=== PATIENT | male | born 1955 | race Caucasian/White ===

== ENCOUNTER → 2023-10-02 06:11 | Day surgery (SDC) | payer OTHER, SELFPAY ==
[2023-10-02 09:45] LABS: Glucose - Point of Care 164 mg/dl (70-99)
== END ==
LOC: GI 06:11
PROVIDERS: ATTENDING PHYSICIAN Specialist; FAMILY PHYSICIAN Family Medicine
DX: Z12.11 Encounter for screening for malignant neoplasm of colon (principal); K63.89 Other specified diseases of intestine; K57.30 Diverticulosis of large intestine without perforation or abscess without bleeding; K22.70 Barrett's esophagus without dysplasia; K21.00 Gastro-esophageal reflux disease with esophagitis, without bleeding; K31.7 Polyp of stomach and duodenum; R12 Heartburn
CPT/HCPCS: 45380; 43239; 88305; 82962

== ENCOUNTER 2025-03-11 06:19 | Day surgery (SDC) | payer OTHER, SELFPAY ==
[2025-03-11 13:53] LABS: Glucose - Point of Care 98 mg/dl (70-99)
== END 2025-03-11 15:26 | disposition home or self-care (01) ==
LOC: GI 06:19
PROVIDERS: ATTENDING PHYSICIAN Specialist
DX: K22.70 Barrett's esophagus without dysplasia (principal)
CPT/HCPCS: 43239; 82962; 88305

== ENCOUNTER 2025-05-04 00:54 | Emergency (ER) | payer OTHER, SELFPAY ==
[2025-05-04 01:19] VITALS: BP 134/66
[2025-05-04 04:43] VITALS: BMI 27.1
--- NOTE | 2025-05-04 07:25 | ED.GENMED ---
History of Present Illness
General
Chief Complaint: Cough
Source: patient
Exam Limitations: none
Time Seen by Provider: 05/04/25 07:17
History of Present Illness
History of Present Illness:
70-year-old male with history of COPD, type 2 diabetes hypertension presents with onset of trouble breathing and cough last evening. He states he felt really tight. He got a hold of the family members nebulizer which helped a little bit. He
denies hemoptysis. No fever. No known sick contacts. No chest pain or leg swelling. No other complaints at this time
Past History
Past History
ED Past Medical History: HTN, NIDDM and Other (strabismus )
ED Past Surgical History: Orthopedic
Social History
Personal: Single
Employment: Employed
Phy Exam
Physical Exam
Physical Exam:
General: Well-appearing male no acute respiratory distress
HEENT normal cephalic atraumatic
Heart: Regular rate and rhythm
diffuse inspiratory and expiratory wheeze
Extremities: No edema to the lower extremities
Skin is warm no rash
Course
Orders/Labs/Results
Orders:
Orders
05/04/25 07:25
Dexamethasone Sod Phosphate [Decadron] 10 mg IV NOW STA
Ipratropium/Albuterol Sulfate [Duoneb] 3 ml INH R NOW STA
CR Chest - 2 Views Urgent
Comment:
Reason For Exam: cough
05/04/25 07:38
COVID-19 Antigen Urgent
Source: Nasal Swab
Complete Blood Count/With Diff Urgent
Comprehensive Metabolic Panel Urgent
Influenza A+B Rapid Molecular Urgent
ALEX Source: Nasal Swab
Specimen Description:
Abnormal Lab Results
05/04/25
07:38
WBC 11.1 H 10^3/uL
(4.8-10.8)
RBC 3.96 L 10^6/uL
(4.70-6.10)
Hgb 9.7 L g/dL
(13.0-18.0)
Hct 31.9 L %
(39.0-52.0)
MCH 24.5 L pg
(27.0-31.0)
MCHC 30.4 L g/dL
(33.0-37.0)
RDW 14.6 H %
(11.5-14.5)
Absolute Monos (auto) 1.3 H 10^3/uL
(0.1-0.6)
Absolute Eos (auto) 1.8 H 10^3/uL
(0-0.7)
Lymphocytes % 20.3 L %
(20.5-51.1)
Monocytes % 11.3 H %
(1.7-9.3)
Eosinophils % 16.2 H %
(0-6)
Chloride 111 H mmol/L
(98-107)
BUN 32 H mg/dl
(9-20)
Glucose 109 H mg/dl
(70-99)
05/04/25 07:38
05/04/25 07:38
Vital Signs
Initial and Last Documented VS:
Initial Vital Signs
Temp Pulse Resp BP Pulse Ox
98.4 F 68 16 134/66 98
05/04/25 01:19 05/04/25 01:19 05/04/25 01:19 05/04/25 01:19 05/04/25 01:19
Last Documented Vital Signs
Temp Pulse Resp BP Pulse Ox
98.4 F 63 20 134/66 98
05/04/25 01:19 05/04/25 04:46 05/04/25 04:46 05/04/25 01:19 05/04/25 07:27
MDM/Problems Addressed
Differential Diagnosis Includes:
Patient with trouble breathing and cough. Quite wheezing on exam. Consider COPD flare versus bronchitis versus underlying pneumonia. Will check COVID and flu test. Nebulizer chest x-ray and labs pending. Decadron ordered
*Pulse Oximetry
SaO2: 98
Oxygen Mode of Delivery: Room air
Patient hypoxic: no
*Critical Care Note
Total Time (30-74mins, 75-104mins- exclusive of procedures): Not Applicable
Update Note
Update Note:
X-ray clear COVID and flu negative labs reviewed without significant finding. Patient feeling much better after nebulizer here. Not hypoxic no respiratory distress. Mild COPD flare. No indication for admission. He has inhalers at home will add
a prednisone course. Stable for discharge
ED Attending Note
-
Portions of this chart may have been created with voice recognition software.� Occasional wrong word or��sound alike� substitutions may have occurred due to the inherent limitations of voice recognition software.
Discharge Plan
Departure
Patient Disposition: Home (Routine Discharge)
Date of Disposition: 05/04/25
Time of Disposition: 08:53
Patient with high blood pressure during this ER visit?: No
Discharge Problem:
COPD exacerbation
Instructions: COPD exacerbation
Prescriptions:
New
prednisone 20 mg tablet
40 mg PO DAILY 5 Days Qty: 10 0RF
No Action
omeprazole [Prilosec] 40 MG capsule,delayed release(DR/EC)
20 mg PO DAILY
repaglinide 2 MG tablet
2 mg PO .WITH MEAL
atorvastatin 10 MG tablet
10 mg PO QPM
polyvinyl alcohol [Lubricant Eye (polyv alcohol)] 15 ML drops
1 apply BOTH EYES DAILY
amlodipine 5 MG tablet
5 mg PO DAILY
aspirin [Aspir-Low] 81 MG tablet,delayed release (DR/EC)
81 mg PO DAILY
(DME) nebulizers [TruNeb Nebulizer] 1 EACH misc
1 ea inhalation PRN MDD x4
sitagliptin phosphate [Januvia] 100 MG tablet
100 mg PO DAILY
vitamins A,C,T-lkod-etgspg [PreserVision AREDS] 1 CAP capsule
2 cap PO DAILY
insulin glargine [Lantus Solostar U-100 Insulin] 300 UNITS/3 ML insulin pen
30 units SC .LUNCH
fluticasone furoate-vilanterol [Breo Ellipta] 1 EACH blister with device
1 ea IH DAILY
tiotropium bromide [Spiriva Respimat] 4 GM mist
2 inh IH DAILY
metoprolol succinate 25 MG tablet extended release 24 hr
25 mg PO DAILY Qty: 90 10RF
metformin 500 MG tablet
1,000 mg PO BID Qty: 0 0RF
Rx Instructions:
Hold post procedure, resume on 09/30 am
Referrals:
Carlos Montenegro MD [Family Provider, Family Practice]
Activity Restrictions/Additional Instructions:
Continue inhalers. Use prednisone as directed. Return if needed otherwise follow up with PMD
Interventions
Interventions:
*Risk Screen - Suicide Last Done: 05/04/25 01:19
*General Assessment Last Done: 05/04/25 01:19
*Neglect/Abuse Screening Last Done: 05/04/25 04:45
*ED- Fall Risk Assessment Last Done: 05/04/25 01:25
*ED COVID-19 Vaccine History Last Done: 05/04/25 04:45
ED- Pulmonary Assessment Last Done: 05/04/25 04:45
Discharge Date and Time
Print Language: [place]
[2025-05-04] MEDS: DECADRON 10 MG IV (07:39)
[2025-05-04] MEDS: DUONEB 3 ML INH (07:39)
[2025-05-04 07:41] VITALS: BP 137/61
[2025-05-04 07:49] LABS: Hematocrit 31.9 % (39.0-52.0); Hemoglobin 9.7 g/dL (13.0-18.0); Mean Corp Hgb Conc. 30.4 g/dL (33.0-37.0); Mean Corpuscular Volume 80.6 fL (80.0-94.0); Nucleated Red Blood Cells % 0 % (-); Platelet Count 185 10^3/uL (130-400); Red Cell Dist. Width 14.6 % (11.5-14.5)
[2025-05-04 08:00] VITALS: BP 139/57
[2025-05-04 08:19] LABS: ALT (SGPT) 17 U/L (0-50); AST (SGOT) 23 U/L (17-59); Albumin 3.7 g/dl (3.5-5.0); Alkaline Phosphatase 78 U/L (38-126); Blood Urea Nitrogen 32 mg/dl (9-20); Calcium 8.8 mg/dl (8.4-10.2); Carbon Dioxide 23 mmol/L (22-30); Chloride 111 mmol/L (98-107); Estimated Creatinine Clearance 51 ml/min; Glucose 109 mg/dl (70-99); Potassium 3.9 mmol/L (3.5-5.1); Sodium 138 mmol/L (135-145); Total Protein 7.1 g/dl (6.3-8.2); eGFR > 60.00
[2025-05-04 08:28] LABS: COVID-19 Antigen Negative (Negative)
== END 2025-05-04 09:00 | disposition home or self-care (01) ==
LOC: EMR 00:54
PROVIDERS: Physician Assistant; EMERGENCY PHYSICIAN Emergency Medicine; FAMILY PHYSICIAN Family Medicine
DX: J44.1 Chronic obstructive pulmonary disease with (acute) exacerbation (principal); E11.9 Type 2 diabetes mellitus without complications; I10 Essential (primary) hypertension; Z79.82 Long term (current) use of aspirin; Z79.84 Long term (current) use of oral hypoglycemic drugs
CPT/HCPCS: 99284; 96374; 94640; 71046; 80053; 85025; 87502; 87811

== ENCOUNTER 2025-06-25 13:20 | Inpatient (IN) | payer OTHER, SELFPAY ==
[2025-06-24 18:44] VITALS: BMI 27.1
[2025-06-24 18:53] LABS: Glucose - Point of Care 166 mg/dl (70-99)
[2025-06-24 19:00] VITALS: BP 130/68
[2025-06-24 19:00] LABS: Hematocrit 33.9 % (39.0-52.0); Hemoglobin 10.4 g/dL (13.0-18.0); Mean Corp Hgb Conc. 30.7 g/dL (33.0-37.0); Mean Corpuscular Volume 80.7 fL (80.0-94.0); Nucleated Red Blood Cells % 0 % (-); Platelet Count 217 10^3/uL (130-400); Red Cell Dist. Width 15.9 % (11.5-14.5)
--- NOTE | 2025-06-24 19:11 | ED.CVA ---
History of Present Illness
General
Chief Complaint: CVA/TIA Symptoms
Source: patient
Exam Limitations: none
Time Seen by Provider: 06/24/25 19:01
Nursing documentation reviewed up to this point in time: agreed with
Onset of Stroke Symptoms
Onset of symptoms known: Yes
Date of onset of symptoms: 06/24/25
Time of onset of symptoms: 11:00
Time pt last seen normal is known: No
History of Present Illness
History of Present Illness:
Note:
CHIEF COMPLAINT(S)
Dizziness and slurred speech.
HISTORY OF PRESENT ILLNESS
The patient is a 70-year-old male presenting with dizziness and slurred speech, which began earlier today. The patient noted the onset of dizziness and found it necessary to sit down due to the sensation. He confirmed episodes of slurred speech
occurring at the same time. On examination, the speech remains slurred. The patient was asked to follow finger movements and reported difficulty moving his eyes, a symptom that has been ongoing for a while, though it was previously assessed by an
od grinder operator who attributed it to progressive changes without concern for acute issues. The patient is alert and aware of his current location and year.
PAST MEDICAL AND SURGICAL HISTORY
The patient reports a history of Type 2 diabetes, hypertension, and hyperlipidemia. Surgical history includes rotator cuff repair with distal clavicle resection.
ALLERGIES
The patient reports no known allergies to medications.
REVIEW OF SYSTEMS
- Neurological: Reports episodes of dizziness and slurred speech, difficulty with eye movements.
- Cardiovascular: History of hypertension.
- Endocrine: Diagnosed with Type 2 diabetes.
- General: No history of smoking or current smoking.
PHYSICAL EXAM
General: Alert, no acute distress.
Skin: Warm, dry.
Head: Normocephalic, atraumatic.
Neck: Supple, trachea midline.
Eye, Ears, Nose, Mouth, and Throat: Oral mucosa moist.
Cardiovascular: Normal peripheral perfusion, no edema.
Respiratory: Respirations are non-labored.
Gastrointestinal: Abdomen nondistended.
Back: Normal range of motion, normal alignment.
Musculoskeletal: Normal range of motion, normal strength.
Neurological: Alert and oriented to person, place, time, and situation, reports difficulty moving eyes, slurred speech.
Psychiatric: Cooperative, appropriate mood and affect.
PLAN
The plan is to proceed with a CT scan of the head and neck with IV contrast to evaluate the possibility of a stroke. The patient will be admitted to the hospital for further monitoring and evaluation.
DIFFERENTIAL DIAGNOSIS
The Differential Diagnosis includes, in no particular order and is not limited to:
1. Cerebrovascular accident (stroke)
2. Transient ischemic attack (TIA)
3. Vestibular dysfunction
4. Labyrinthitis
5. Menieres disease
6. Multiple sclerosis
7. Brain tumor
8. Hypertensive encephalopathy
9. Migraine variant
10. Medication side effect
CARE-UPDATE
06/24/25 - 22:[address] angiography results with Dr. Renee. No significant acute findings; minimal plaque in distal left common carotid observed. Plan to initiate treatment includes aspirin and Plavix, which has been administered. Reglanide to be held. Monitor
for potential fibrinolytic effects.
EKG
My independent EKG interpretation is:
- Rhythm: Normal sinus rhythm
- Rate: 66 beats per minute
- Notable intervals: Red funnel branch block (assuming this is a sweat band separator error, possibly meant to be 'right bundle branch block' or another finding)
- Abnormalities: Left ventricular hypertrophy
- [place]: Left axis deviation
Disposition:
SUMMARY OF ENCOUNTER
The patient is a 70-year-old male who presented to the emergency department with symptoms of dizziness and slurred speech. The patients history includes underlying diabetes, hypertension, and hyperlipidemia. Due to the acute presentation and
neurological symptoms, a CT scan of the head and neck with IV contrast was performed to evaluate for a potential cerebrovascular accident. Management discussion with Dr. Renee, a neurologist, informed the initiation of dual antiplatelet therapy.
DISPOSITION
Admit.
ASSESSMENT
The patients acute presentation of dizziness and slurred speech raises concern for a cerebrovascular accident, transient ischemic attack, or other vascular or neurological events. Neurological consultation and further inpatient evaluation were
deemed necessary.
MANAGEMENT OF THE PATIENTS CARE WAS DISCUSSED WITH
Dr. Renee, neurologist, discussed the management plan which includes beginning dual antiplatelet therapy and admission for further evaluation.
PLAN
Proceed with inpatient admission for continuous monitoring and further diagnostic workup. Initiate dual antiplatelet therapy as discussed.
INDEPENDENT REVIEW OF LABS AND INTERPRETATION OF TESTS
My independent interpretation of the CT angiography shows no significant acute findings, with only minimal plaque observed in the distal left common carotid.
PATIENT EDUCATION AND COUNSELING
The patient was informed about the potential causes of his symptoms, including the need for hospitalization to rule out a significant neurological event such as a stroke and the importance of starting treatment with antiplatelet agents.
FOLLOW-UP INSTRUCTIONS
Inpatient hospital admission for further monitoring and management is required.
MEDICATION RECONCILIATION
Aspirin and clopidogrel (Plavix) initiated as dual antiplatelet therapy. Repaglinide was held.
MEDICAL DECISION MAKING
-Complexity of Data Reviewed: Chronic conditions affecting care include diabetes, hypertension, and hyperlipidemia. Differential diagnoses considered: cerebrovascular accident (stroke), transient ischemic attack (TIA), vestibular dysfunction, and
others as listed.
-Data:
Category 1
My independent interpretation of the CT scan of the head and neck showed no acute findings.
Category 3
Discussion of management with Dr. Renee, neurologist, who advised dual antiplatelet therapy and admission for further workup.
DIAGNOSIS
Cerebrovascular accident, suspected [ICD-10: I63.9]
Slurred speech, unspecified [ICD-10: R47.81]
Past History
Past History
ED Past Medical History: HTN, NIDDM and Other (strabismus )
ED Past Surgical History: Orthopedic
Social History
Personal: Single
Employment: Employed
Phy Exam
Physical Exam
Physical Exam:
.
Scores
NIH Stroke Score
Level of Consciousness: 0 - Alert
LOC Questions: 0-Answers both correctly
LOC Commands: 0-Performs both correctly
Best Horizontal Gaze: 0-Normal
Visual Schumacher: 0=Normal, no visual loss
Facial Palsy: 0=Normal, symmetrical
Motor - Right Arm: 0=No drift 10 seconds
Motor - Left Arm: 0=No drift 10 seconds
Motor - Right Le-No drift 5 seconds
Motor - Left Le-No drift 5 seconds
Limb Ataxia: 0-Absent
Sensation: 0-Normal
Best Language: 0-No aphasia
Dysarthria: 1-Mild slurring
Extinction and Inattention: 0-No abnormality
NIH Total Score:: 1
Course
Orders/Labs/Results
Orders:
Orders
06/24/25 18:47
EKG [Electrocardiogram (*1)] Urgent
Reason for Study: Tachycardia
06/24/25 18:48
EKG- Treatment ONCE
06/24/25 18:55
Complete Blood Count/With Diff Urgent
Comprehensive Metabolic Panel Urgent
06/24/25 19:10
CT Head & Neck Angio W/wo IV Urgent
Comment:
Reason For Exam: slurred speech, dizzy, EOM neuropathy
IV Insert/Care/Rem.- Treatment PRN
06/24/25 21:56
Aspirin 325 mg PO NOW STA
Clopidogrel Bisulfate [Plavix] 75 mg PO NOW STA
06/24/25 22:33
Admit/Transfer Patient As Directed
Co-Sign Provider:
Level of Care: Observation services
Assign to:: Telemetry
Physician / Group: Bebo
Diagnosis: Slurred Speech
Reason for Telemetry: CVA/TIA
Date to Stop Telemetry: 06/27/25
Time to Stop Telemetry: 11:00
PRN Pain Medication Management As Directed
May give lesser potent ordered pain med per pt: Yes
preference::
Protocol:: Medication orders for pain may be administered in a
manner that supports deferring to patient preference
when the pt is:
- Requesting an ordered lesser potent pain medication.
Least to most potent pain medications are defined
as: acetaminophen < NSAID < tramadol < opioids
(morphine, oxycodone, hydromorphone).
- Requesting a lesser dose of the same medication IF
ORDERED.
- Requesting a less intrusive route of administration
if both routes are prescribed by the provider (PO <
IV).
06/24/25 22:35
Code Status As Directed
Resuscitation Status: Full Code
06/25/25 00:01
Acetaminophen [Tylenol/Feverall] 650 mg RECTAL Q4HPRN PRN
Acetaminophen [Tylenol] 650 mg PO Q4HPRN PRN
Dextrose 50%-Water [Dextrose 50% Syringe] 12.5 grams IV [id number] PRN
Glucagon [GlucaGen] 1 mg IM PRN PRN
06/25/25 00:01
Case Management Consult ONCE
Case Management Consult: Discharge Planning
Comment: stroke/tia
Consult Notification Routine
Specialty to Notify: Neurology
DIETARY IP CONSULT Routine
Reason for Consult: stroke/TIA
NEUROLOGY CONSULT Urgent
Consulting Provider: Saeid Renee
Was physician already notified: No
Reason for consult: Slurred Speech
Compensation Vice President Urgent
MR Brain Without Contrast Routine
Comment:
Reason For Exam: stroke/TIA
Recent pill cam endoscopy?: No
Activity As Directed
Activity Level: Out of Bed-Early Mobility
Bedside Glucose Monitoring As Directed
Frequency: AC&HS
Additional Instructions:: Change to q6h if pt on TPN, tube feeding or not eating
NIH Stroke Scale As Directed
Directions: Per protocol
Comment: every shift and with any change in condition or mental status
Neurological Checks As Directed
Frequency: q4h
Additional Instructions:: q4h x 24h upon admission to the floor, then qshift & with any change in condition
and mental status
Patient Education As Directed
Type: Stroke education packet
Comment: provide to patient and family
Pneumatic Compression Sleeves As Directed
Type: Knee high
Vital Signs As Directed
Frequency: Per unit guidelines
Call for:: BP greater than 180/105 mmHg or less than 100/60 mmHg
Ot Eval And Treat Routine
Pt Eval And Treat Routine
Activity Level: Out of Bed-Early Mobility
Speech Therapy Eval & Treat Routine
DX Deep Vein Thrombosis Video Routine
06/25/25 06:00
Basic Metabolic Panel IN AM
Cardiovascular Evaluation IN AM
Complete Blood Count/No Diff IN AM
Glycohemoglobin (HgbA1c) IN AM
Magnesium IN AM
06/25/25 07:30
Insulin Aspart Corrective Low [Novolog Flexpen-Low Resistance] See Protocol SC AC
06/25/25 08:00
Aspirin Chewable [Low Strength Aspirin] 81 mg PO DAILY
Budesonide/Formoterol 160/4.5 [Symbicort 160/4.5 Mcg Inhaler] 2 puff INH R BID
Clopidogrel Bisulfate [Plavix] 75 mg PO DAILY
Dapagliflozin [Farxiga] 10 mg PO DAILY
Metoprolol Xl [Toprol Xl] 25 mg PO DAILY
Pantoprazole [Protonix] 40 mg PO BID
Sitagliptin Phosphate [Januvia] 100 mg PO DAILY
Tiotropium [place] 2.5 Mcg [Spiriva Respimat 2.5 Mcg] 2 puff INH R DAILY
06/25/25 Dinner
2000 calorie (17 carb) Diabetic
At Your Request: Full Participation
06/25/25 18:00
Atorvastatin [Lipitor] 40 mg PO QPM
06/25/25 22:00
Amlodipine [Norvasc] 10 mg PO HS
06/27/25 11:00
DC Protocol for Telemetry ONCE
Abnormal Lab Results
06/24/25 06/24/25
18:47 18:55
WBC 11.4 H 10^3/uL
(4.8-10.8)
RBC 4.20 L 10^6/uL
(4.70-6.10)
Hgb 10.4 L g/dL
(13.0-18.0)
Hct 33.9 L %
(39.0-52.0)
MCH 24.8 L pg
(27.0-31.0)
MCHC 30.7 L g/dL
(33.0-37.0)
RDW 15.9 H %
(11.5-14.5)
Absolute Monos (auto) 1.5 H 10^3/uL
(0.1-0.6)
Absolute Eos (auto) 1.6 H 10^3/uL
(0-0.7)
Lymphocytes % 20.1 L %
(20.5-51.1)
Monocytes % 13.1 H %
(1.7-9.3)
Eosinophils % 14.2 H %
(0-6)
BUN 28 H mg/dl
(9-20)
Glucose 169 H mg/dl
(70-99)
POC Glucose 166 H mg/dl
(70-99)
06/24/25 18:55
06/24/25 18:55
Vital Signs
Initial and Last Documented VS:
Initial Vital Signs
Temp Pulse Resp Pulse Ox
98.4 F 77 19 94
06/24/25 18:44 06/24/25 18:44 06/24/25 18:44 06/24/25 18:44
Last Documented Vital Signs
Temp Pulse Resp BP Pulse Ox
97.6 F 54 16 121/61 96
06/25/25 03:14 06/25/25 03:14 06/25/25 03:14 06/25/25 03:14 06/25/25 03:14
*Pulse Oximetry
SaO2: 97
Oxygen Mode of Delivery: Room air
Patient hypoxic: no
*Critical Care Note
Total Time (30-74mins, 75-104mins- exclusive of procedures): Not Applicable
ED Attending Note
-
Portions of this chart may have been created with voice recognition software.� Occasional wrong word or��sound alike� substitutions may have occurred due to the inherent limitations of voice recognition software.
Discharge Plan
Departure
Patient Disposition: Admit
Date of Disposition: 06/24/25
Time of Disposition: 22:02
Admit to: Telemetry
Presentation/result/management discussed w/ accepting MD/DO: Hospitalist
Patient with high blood pressure during this ER visit?: Yes
Condition: Fair
Discharge Problem:
Acute CVA (cerebrovascular accident)
Interventions
Interventions:
*Risk Screen - Suicide Last Done: 06/24/25 18:44
*General Assessment Last Done: 06/24/25 18:44
*Neglect/Abuse Screening Last Done: 06/24/25 18:44
*ED- Fall Risk Assessment Last Done: 06/24/25 18:44
*ED COVID-19 Vaccine History Last Done: 06/24/25 18:44
*ED Influenza Vaccine History Last Done: 06/24/25 18:44
*Nursing Disposition Last Done: 06/25/25 00:10
ED- Pulmonary Assessment Last Done: 06/24/25 19:05
ED- Neurological Assessment Last Done: 06/24/25 19:05
ED- Cardiac Assessment Last Done: 06/24/25 19:05
ED Swallowing Screen Last Done: 06/24/25 19:42
Discharge Date and Time
Discharge Date/Time: 06/25/25 00:10
[2025-06-24 19:25] LABS: ALT (SGPT) 17 U/L (0-50); AST (SGOT) 21 U/L (17-59); Albumin 4.3 g/dl (3.5-5.0); Alkaline Phosphatase 93 U/L (38-126); Blood Urea Nitrogen 28 mg/dl (9-20); Calcium 9.2 mg/dl (8.4-10.2); Carbon Dioxide 27 mmol/L (22-30); Chloride 105 mmol/L (98-107); Estimated Creatinine Clearance 47 ml/min; Glucose 169 mg/dl (70-99); Potassium 4.4 mmol/L (3.5-5.1); Sodium 139 mmol/L (135-145); Total Protein 7.8 g/dl (6.3-8.2); eGFR 58.73
[2025-06-24 20:00] VITALS: BP 156/66
[2025-06-24 20:36] VITALS: BP 154/67
[2025-06-24 21:00] VITALS: BP 147/70
--- NOTE | 2025-06-24 22:06 | HPS.HSE ---
Addendum entered and electronically signed by Deborah Lagunas MD 06/24/25 23:09:
This is an addendum to the H&P written by Otilia Parker on 06/24/2025. �Patient seen and examined dependently with PA.
70-year-old male past medical history of COPD, type 2 diabetes, hypertension, strabismus left eye, chronic anemia, presenting with slurred speech since 11 AM and dizziness/vertigo earlier.
Vital signs unremarkable.
Labs show leukocytosis of 11.4.
CTA head and neck shows no acute intracranial abnormality.
Patient with concern for CVA. �Aspirin and Plavix and statin, check A1c and lipid panel, MRI brain, neurology. �Speech and swallow evaluation
Original Note:
Family Physician
-
Family Physician: Carlos Montenegro
Chief Complaint
-
Unsteady Gait and Slurred Speech
History of Present Illness
Patient is a 70 y/o male past medical history of diabetes mellitus, hypertension, hyperlipidemia and asthma who presents with slurred speech. Patient was noted by his neighbor to have slurred speech that started around 11am this morning. Patient
reports blurry vision which he attributes to his new glasses and states he has chronic strabismus. He denies focal numbness, tingling or weakness.
Medical History
Past Medical History
Past Medical History: Reports Other
Additional Past Medical History:
Diabetes Mellitus, Type II
Essential Hypertension
Hyperlipidemia
Asthma
GERD
Past Surgical History: Reports Other
Additional Past Surgical History:
Left Rotator Cuff Surgery
Left Hip Fracture Repair
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
Carpal Tunnel Release
Cataract Surgery
Social History
Tobacco: Non-smoker
Family History
Family History: Not pertinent
Allergies / Home Medications
Allergies reflects when Allergies were last updated in [facility].
Home Medications with original date entered in [facility]
Allergy/Medication List:
Allergies
Allergy/AdvReac Type Severity Reaction Status Date / Time
No Known Allergies Allergy Verified 06/24/25 18:50
Home Medications
metformin 500 mg tablet 1,000 mg (2 x 500 mg) PO BID Diabetes ##0 09/28/21
metoprolol succinate 25 mg tablet,extended release 24 hr 25 mg PO DAILY #90 tabs 09/28/21
sitagliptin phosphate 100 mg tablet (Januvia) 100 mg PO DAILY Diabetes 09/28/21
amlodipine 10 mg tablet 10 mg PO HS 06/24/25
empagliflozin 10 mg tablet (Jardiance) 10 mg PO DAILY 06/24/25
fluticasone furoate 100 mcg-vilanterol 25 mcg/dose inhalation powder (Breo Ellipta) 1 inh inhalation DAILY 06/24/25
omeprazole 20 mg capsule,delayed release 20 mg PO BID 06/24/25
tiotropium bromide 1.25 mcg/actuation mist for inhalation (Spiriva Respimat) 2 puff inhalation DAILY 06/24/25
Review of Systems
-
A 12 point ROS was completed and negative except as noted: Yes
Constitutional: Denies Fever
Respiratory: Denies Cough or Trouble Breathing
Cardiac: Denies Chest Pain or Palpitations
Abdomen/GI: Denies Abdominal Pain, Nausea, Vomiting or Diarrhea
Physical Exam
Vital Signs
Vital Signs
Temp Pulse Resp BP Pulse Ox
98.4 F 60 13 147/70 96
06/24/25 18:44 06/24/25 21:45 06/24/25 21:45 06/24/25 21:00 06/24/25 21:45
Physical Exam
General: Comfortable and Conversant
HEENT: Anicteric, Moist mucous membranes, PERRLA and Other (Chronic strabismus )
Respiratory: Clear and Non Labored Respirations
Cardiac: S1/S2 and Regular Rhythm; No Murmur
GI: Soft and Non Tender
Rectal: Deferred by Provider
Musculoskeletal: No Clubbing, No Cyanosis and No Edema
Skin: Warm and Dry
Neuro: Awake, Alert, Oriented, No Motor Deficits and Slurred Speech
Psych: Calm
Laboratory Results
-
06/24/25 18:55
06/24/25 18:55
Laboratory Results
Total Bilirubin 0.4 mg/dl (0.2-1.3) 06/24/25 18:55
AST 21 U/L (17-59) 06/24/25 18:55
ALT 17 U/L (0-50) 06/24/25 18:55
Alkaline Phosphatase 93 U/L (38-126) 06/24/25 18:55
Data Reviewed
-
CT Scan: Report Reviewed by me
Lab Data: Labs Reviewed by me
Impression/Plan
-
Slurred Speech, concerning for acute stroke
-Consult Neurology
-Continue aspirin and clopidogrel
-Check Brain MRI
-Consult PT/OT and Speech
Diabetes Mellitus, Type II
-Check HgbA1c
-Hold metformin post contrast for CTA
-Continue Januvia and Jardiance
-Monitor sugars and continue coverage insulin
Essential Hypertension
-Allow for permissive hypertension until ~11am on 06/25
-Continue amlodipine
Hyperlipidemia
-Check Lipid Panel
-Start atorvastatin
Asthma, no acute exacerbation
-Continue Breo and Spiriva
GERD
-Continue Protonix
DVT proph: SCDs
Code Status: Full Code
[2025-06-24 22:07] VITALS: BP 141/69
[2025-06-24] MEDS: ASPIRIN 325 MG PO (22:12)
[2025-06-24] MEDS: PLAVIX 75 MG PO (22:12)
[2025-06-24 23:00] VITALS: BP 144/67
[2025-06-25] VITALS (10 sets, daily range): BP systolic 114–166; BP diastolic 51–71; PULSE 56–69; O2SAT 98; BMI 25.8
[2025-06-25 00:30] LABS: Glucose - Point of Care 131 mg/dl (70-99)
--- NOTE | 2025-06-25 00:40 | PTCARENOTE ---
Received patient from ED via stretcher. Patient stood and pivoted from stretcher x2 assist. AAOx3, no current complaints of pain. Oriented patient to room and placed call chong within reach.
--- NOTE | 2025-06-25 03:01 | DOWNTIME ---
There was a [employer] Client Prop Making Supervisor Downtime on 06/25/2025 from 0100 to 06/25/2025 at 0255. Downtime documentation of patient's care, including medication administrations, has been reconciled in the electronic record per guidelines. Refer to the
patient's paper chart under the miscellaneous tab to see printed paper medication records and downtime forms.
[2025-06-25 06:52] LABS: Hematocrit 35.1 % (39.0-52.0); Hemoglobin 10.3 g/dL (13.0-18.0); Mean Corp Hgb Conc. 29.3 g/dL (33.0-37.0); Mean Corpuscular Volume 84.6 fL (80.0-94.0); Platelet Count 205 10^3/uL (130-400); Red Cell Dist. Width 15.9 % (11.5-14.5)
--- NOTE | 2025-06-25 07:03 | W.PN.HOSP.TC ---
Addendum entered and electronically signed by Kesha Rinaldi MD 06/25/25 16:06:
I saw and evaluated the patient independently. I reviewed and discussed the resident�s note and agree with findings and plan as documented by Dr. Palacios.
GENERAL: well developed, well nourished, male in no apparent distress
HEENT: NC/AT--left eye deviated towards midline (nose)
HEART: regular rate and rhythm, +S1, +S2
LUNGS : clear to auscultation bilaterally
ABDOM: soft, nontender, nondistended, + bowel sounds
EXT: no cyanosis, clubbing, or edema
NEUROLOGIC: grossly intact
Dizziness secondary to transient ischemic attack--but cannot rule out CVA--CTA head and neck negative--MRI confirms acute CVA right parietal and left occipital lobes--apprec neuro--permissive HTN for 24 hours--lipid panel shows LDL not at goal
(88)--start high intensity statin lipitor 80--check ECHO to eval for embolic source, may need JOSÉ MIGUEL--cont asa/plavix for 21 days then asa alone thereafter--PT/OT/speech
iron deficiency anemia--ferritin 6.7, B12 low--start repletion 1000mg daily--folate WNL--cont thiamine
Diabetes mellitus type 2--cont Dapagliflozin 10 mg, sitagliptin 100 mg--insulin aspart sliding scale
GERD--continue Protonix
Essential Hypertension--Continue metoprolol 25 mg with parameters
Asthma-- Continue ipratropium/albuterol inhaler, tiotropium bromide.
DVT proph
Code-- Full
Original Note:
Today's Communication/Plan
-
MRI
Echo follow-up
Monitor B12, folic acid, CBC, CMP.
Monitor blood glucose, sliding scale.
Assessment / Plan
Assessment / Plan
70-year-old male with past history of type 2 diabetes, hypertension, hyperlipidemia, asthma, GERD presented with dizziness and slurred speech which became yesterday morning when he was at his friend's house. The patient noted the onset of dizziness
and found it necessary to sit down on the couch. He confirmed episodes of slurred speech, blurry vision (he is mentioning it is because of his new glasses )occurring at the same time.
# Dizziness secondary to transient ischemic attack:
BP 166/66--137/64 (permissive hypertension currently on hold for antihypertensives)
I/o=
Labs, WBC 11.4--9.7, Hemoglobin 10.4--10.3.
Chemistry: Sodium 138, potassium 4.2, chloride 106, carbon dioxide 28, bun 28--23 high, creatinine 1.3--1.4, HbA1c pending, blood glucose 169--101 high, hep C antibody pending,
Head and neck CT angiogram: There is moderate disc space narrowing at C4-C5. There is mild narrowing at C3/C4. There is minimal reversal of normal cervical spinal lordosis. This can be seen with muscle spasm. Prevertebral soft tissues appear
normal.Overall mild atherosclerotic vascular disease.
EKG: Normal sinus rhythm, right bundle branch block, inferior infarct, T wave inversion.(Which was noted on the previous EKG on 2019).
Echo order placed to assess the primary source for TIA
Continue aspirin chewable 81 mg and clopidogrel, atorvastatin 40 mg,
MRI head for suspecting- sensitive for ischemia/mass.
Currently on permissive hypertension.
Lipid profile results showed LDL 88, goal LDL has to be less than 70, atorvastatin dosage increased to 80 mg
Neurology consulted recommended for IV iron by mouth iron replaced, to follow orthostatics, advised to initiate B12 if B12 level is less than 400.
Recommended to continue aspirin and clopidogrel for 21 days, then discontinue of clopidogrel.
Recommended to check blood work for additional metabolic abnormalities.
# Diabetes mellitus:
Dapagliflozin 10 mg, sitagliptin 100 mg,
insulin aspart sliding scale
# GERD continue Protonix
# Hypertension: Continue metoprolol 25 mg
# Asthma: Continue ipratropium/albuterol inhaler, tiotropium bromide.
#Consulted PT,OT, ST
DVT: SVT
Code: Full
Anticipated Discharge: > 48 hours
Subjective/Interval History
-
Date of Service: June 25, 2025
70-year-old male with past history of type 2 diabetes, hypertension, hyperlipidemia, asthma, GERD presented with dizziness and slurred speech which became yesterday morning when he was at his friend's house. The patient noted the onset of dizziness
and found it necessary to sit down on the couch. He confirmed episodes of slurred speech, blurry vision (he is mentioning it is because of his new glasses )occurring at the same time. He denies weakness, tingling, numbness, similar episodes in the
past, falling down,confusion, trouble on coordination, severe headache, nausea, vomiting, vertigo. He is taking his medications regularly which includes metformin 500 mg, sitagliptin 100 mg, empagliflozin 10 mg. His hypertension medication
includes metoprolol, amlodipine. Non-smoker, surgical history: left rotator cuff surgery, left hip fracture surgery.
Currently he is not experiencing weakness, tingling, numbness, confusion, trouble uncoordination, severe headache, nausea, vomiting, vertigo, bladder incontinence. Maybe he is not getting down from the bed from the time of admission.
Objective Data
-
Labs:
Laboratory Results
06/24/25 06/25/25
18:55 05:53
WBC 9.7
Hgb 10.3 L
Hct 35.1 L
Plt Count 205
Sodium 139 Pending
Potassium 4.4 Pending
Chloride 105 Pending
Carbon Dioxide 27 Pending
BUN 28 H Pending
Creatinine 1.3 Pending
Glucose 169 H Pending
Calcium 9.2 Pending
Total Bilirubin 0.4
AST 21
ALT 17
Alkaline Phosphatase 93
Vital Signs:
Vital Signs
Temp Pulse Resp BP Pulse Ox
97.6 F 54 16 121/61 96
06/25/25 03:14 06/25/25 03:14 06/25/25 03:14 06/25/25 03:14 06/25/25 03:14
I&O
06/24/25 06/25/25 06/26/25
06:59 06:59 06:59
Intake Total 0 / 0
Output Total 1025 / 1025
Balance -1025 / -1025
Physical Exam
-
General: No Apparent Distress
Respiratory: Clear to Auscultation
Cardiac: Regular Rhythm and S1/S2
GI: Soft, Nontender and Nondistended
Genito-urinary: No Costovertebral Tender
Skin: Warm
Neuro: AO x 3, Central Nerve's Intact, No Sensory Deficits, DTR's Intact & Symmetrica, Slurred Speech and Other ( normal reflex, strength 5 x 5, he is following fingers while changing the direction, pupils reactive. Cranial nr: No diplopia, no
dysarthria, slurred speech present, no facial nerve palsy signs. )
Hematologic / Lymphatic: No Lymphadenopathy
Psych: Calm
[2025-06-25 07:14] LABS: Blood Urea Nitrogen 23 mg/dl (9-20); Calcium 8.9 mg/dl (8.4-10.2); Carbon Dioxide 28 mmol/L (22-30); Chloride 106 mmol/L (98-107); Estimated Creatinine Clearance 44 ml/min; Glucose 101 mg/dl (70-99); HDL Cholesterol 45 mg/dl; LDL Cholesterol, Calculated 88 mg/dl; Magnesium 1.9 mg/dl (1.6-2.3); Potassium 4.2 mmol/L (3.5-5.1); Sodium 138 mmol/L (135-145); Very Low Density Lipoprotein 9 mg/dl (0-30); eGFR 53.74
[2025-06-25] MEDS: SYMBICORT 160/4.5 MCG INHALER 2 PUFF INH ×2 (07:36→19:33)
[2025-06-25] MEDS: SPIRIVA RESPIMAT 2.5 MCG 2 PUFF INH (07:36)
[2025-06-25 07:57] LABS: Glucose - Point of Care 103 mg/dl (70-99)
[2025-06-25] MEDS: JANUVIA 100 MG PO (07:58)
[2025-06-25] MEDS: PROTONIX 40 MG PO ×2 (07:58→20:16)
[2025-06-25] MEDS: FARXIGA 10 MG PO (07:59)
[2025-06-25] MEDS: PLAVIX 75 MG PO (08:03)
[2025-06-25] MEDS: LOW STRENGTH ASPIRIN 81 MG PO (08:04)
--- NOTE | 2025-06-25 08:19 | CON.NEURO4 ---
Addendum entered and electronically signed by Saeid Renee MD 06/25/25 12:42:
Studies reviewed.
I have personally examined the patient. I reviewed and agree with the CLOTH CHECKER's Note.
My addenda:
Awake, alert, interactive. No acute distress.
Speech mildly hypophonic.
Follows 2-step requests w/ mild difficulty. No tremor.
Extra-ocular movements grossly intact. Patient has 3+ esotropia
Facial movements full and symmetric. Hearing intact to normal conversational volume.
Normal UE movements bilaterally.
Neck: full ROM.
Chest: no dyspnea
Heart: no JVD
Ext: (-) Clubbing, (-) Cyanosis, (-) Edema
IMPRESSIONS/RECOMMENDATIONS:
Abrupt onset of change mental status, speech changes
Check MRI brain as planned
With IV iron and by mouth iron replaced low iron storage levels
Check blood work for additional metabolic abnormalities
Follow orthostatics
Initiate B12 if B12 level is less than 400
Continue newly initiated atorvastatin 40 mg daily goal of normoglycemia
Continue dual antiplatelet therapy with both aspirin and clopidogrel for 21 days, then discontinuance of clopidogrel with continuance of aspirin 81 mg daily
D/W patient
All questions answered.
Will continue to follow patient.
Original Note:
Documented by User: Oruqidea Carlos NP 06/25/25 12:21
Consultation - Neurology 4
-
CONSULTING PHYSICIAN: Saeid Renee MD
REFERRING PHYSICIAN: Hospitalists/Otilia Rasheed PA-C
DICTATED BY: ADI Hendrickson
DATE/TIME OF REQUEST: 06/25/25
DATE/TIME OF CONSULTATION: 06/25/25
Reason for Consultation: Dysarthria, dizziness
History of Present Illness:
This is a 70-year-old right-handed male who has presented to the hospital on 06/24/25 with report of dizziness and dysarthria. Patient reports that yesterday (06/24/25) he was at a neighbor's house at 1100 when suddenly he started to feel 'dizzy'
which he describes as lightheaded. He had to sit down and reports that his friends said he wasn't speaking much and what he did say sounded slurred. CTA head/neck was obtained on arrival and is negative for any acute abnormalities. NIHSS was 1 for
dysarthria. He was not a candidate for TNK/IAT due to low NIHSS. Currently (06/25/25), he reports that his symptoms are ongoing. He reports feeling 'out of it,' lightheaded, tired, and not like himself. He denies any headache, vision changes,
swallowing difficulty, numbness, and weakness. He denies any history of TIA, stroke, or events like this in the past. He is not taking any blood-thinning medications.
Past Medical History: HTN, HLD, NIDDM, asthma, GERD, chronic strabismus left eye
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
Family History: Reviewed and noncontributory.
Social History: Denies tobacco, alcohol, and illicit drug use.
Allergies: No known allergies.
Home Medications: See below.
Review of Symptoms:
Patient denies any fever, headache, chest pain, shortness of breath, GI or symptoms.
�Per the HPI.�All systems are reviewed negative except above.
Physical Exam:
The patient is afebrile, abdomen is nondistended, breathing is unlabored, skin is warm and dry, no edema.
NIH Stroke Scale:
I performed the NIH stroke scale on the patient on 06/25/25 at 0945. The patient scored 3 points on the NIH stroke scale assessment, which were assigned as follows: See below.
Neurologic Examination:
The patient is awake, alert and oriented x 3. He is able to follow commands and answer questions appropriately. There is mild aphasia, severe difficulty with repetitive phrases. Speech is hypophonic, mildly dysarthric. On cranial nerve assessment,
pupils are 3 mm bilateral, round and reactive to light and accommodation. Visual schumacher are full. +Strabismus. Extraocular movements are intact. Facial sensations are intact and bilaterally symmetrical, there is no facial asymmetry. Hearing is
intact bilaterally to normal conversation volume. Tongue palate and uvula are midline. Sternocleidomastoid strengths are full bilaterally. Motor strengths are 5/5 bilateral upper and lower extremities on medical research [place] scale. There is
slight pronator drift in the RUE. No involuntary movement noted. Deep tendon reflexes are 2+ bilateral upper and lower extremities and Babinski is absent bilaterally. There was no extinction noted on double simultaneous stimulation. Coordination is
intact by finger to nose bilaterally.
Lab Results: See below.
Neuro Imaging:
1. CTA head/neck 06/24/25: No acute intracranial pathology. Moderate nonacute sinusitis. Probable large right nasal cavity polyps. No acute vascular pathology. No M1 nor M2 occlusion. Overall mild atherosclerotic vascular disease. Multilevel
degenerative disc disease. Minimal reversal of normal cervical spinal lordosis. This can be seen with muscular spasm.
Differentials for the patient's presentation include:
1. Dizziness and speech changes; etiology is concerning for a small ischemic stroke, vs less likely toxic metabolic encephalopathy or orthostasis.
2. Low ferritin level.
3. Vitamin B12 deficiency.
Patient has the following risk factors for their symptoms: HTN, HLD, DM
IV Tenecteplase/IAT candidacy: He was not a candidate for TNK/IAT due to low NIHSS.
Recommendations:
-MRI Brain w/ and w/o contrast pending.
-Continue DAPT with aspirin 81mg and clopidogrel 75mg daily for 21 days. After 21 days, stop clopidogrel and continue aspirin 81mg daily only, indefinitely.
-Ferritin level is severely low at 6.7. Provide IV iron x1 now. Initiate ferrous sulfate 325mg night.
-LDL goal <70. LDL is 88. Continue newly initiated atorvastatin 40mg daily.
-Goal normoglycemia, hbA1c is 7.6.
-PT/OT/ST evaluations.
-NIHSS and neurological checks per unit guidelines.
-Provide patient with a stroke education packet.
-Vitamin B12 level is low at 247, goal is >400. Initiate cyanocobalamin 1000mcg PO daily.
-DVT prophylaxis.
Discussed patient care with: Dr. Renee, the patient
Vital Signs and Labs
-
Vital Signs and Labs:
Vital Signs
Temp Pulse Resp BP Pulse Ox
97.4 F 63 18 137/64 95
06/25/25 08:05 06/25/25 08:05 06/25/25 08:05 06/25/25 08:05 06/25/25 08:05
Lab Results
06/25/25 05:53
06/25/25 05:53
Sodium 138 mmol/L (135-145) 06/25/25 05:53
Potassium 4.2 mmol/L (3.5-5.1) 06/25/25 05:53
BUN 23 mg/dl (9-20) H 06/25/25 05:53
Glucose 101 mg/dl (70-99) H 06/25/25 05:53
Calcium 8.9 mg/dl (8.4-10.2) 06/25/25 05:53
LDL Cholesterol, Calc 88 mg/dl 06/25/25 05:53
Medications
-
Active Medications
Generic Name Dose Route Start Last Admin
Trade Name Freq PRN Reason Stop Dose Admin
Acetaminophen 650 mg 06/25/25 00:01
Acetaminophen 650 Mg Rectal Suppository RECTAL 07/23/25 00:00
Q4HPRN PRN
SOUTH, mild pain, or temp >100.4F
Acetaminophen 650 mg 06/25/25 00:01
Acetaminophen 325 Mg Tablet PO 07/23/25 00:00
Q4HPRN PRN
SOUTH, mild pain, or temp >100.4F
Albuterol/Ipratropium 3 ml 06/25/25 00:01
Ipratropium 0.5/Albuterol 3 Mg (3 Ml Ampul) INH
R Q6HPRN PRN
shortness of breath
Protocol
Amlodipine Besylate 10 mg 06/25/25 22:00
Amlodipine 10 Mg Tablet PO 07/23/25 21:59
HS HERLINDA
Aspirin 81 mg 06/25/25 08:00 06/25/25 08:04
Aspirin 81 Mg Chewable Tablet PO 07/23/25 07:59 81 mg
DAILY HERLINDA Administration
Atorvastatin Calcium 40 mg 06/25/25 18:00
Atorvastatin (Lipitor) 40 Mg Tablet PO 07/23/25 17:59
QPM HERLINDA
Budesonide/Formoterol Fumarate 2 puff 06/25/25 08:00 06/25/25 07:36
Symbicort Inhaler 160/4.5 INH 07/23/25 07:59 2 puff
R BID HERLINDA Administration
Clopidogrel Bisulfate 75 mg 06/25/25 08:00 06/25/25 08:03
Clopidogrel 75 Mg Tablet PO 07/23/25 07:59 75 mg
DAILY HERLINDA Administration
Dapagliflozin 10 mg 06/25/25 08:00 06/25/25 07:59
Dapagliflozin (Farxiga) 10 Mg Tablet PO 07/23/25 07:59 10 mg
DAILY HERLINDA Administration
Dextrose 12.5 grams 06/25/25 00:01
Dextrose 50% (0.5 Grams/Ml) 50 Ml Syringe IV 07/23/25 00:00
[id number] PRN
hypoglycemia
Protocol
Glucagon 1 mg 06/25/25 00:01
Glucagon 1 Mg Vial IM 07/23/25 00:00
PRN PRN
hypoglycemia
Protocol
Insulin Aspart 0 units 06/25/25 07:30 06/25/25 07:58
Insulin Aspart Low Resistance 300 Units/3 Ml Pen.Injctr SC 07/23/25 07:29 Not Given
AC HERLINDA
Protocol
Metoprolol Succinate 25 mg 06/25/25 08:00
Metoprolol 25 Mg Extended Release Tablet PO 07/23/25 07:59
DAILY HERLINDA
Pantoprazole Sodium 40 mg 06/25/25 08:00 06/25/25 07:58
Pantoprazole 40 Mg Delayed Release Tablet PO 07/23/25 07:59 40 mg
BID HERLINDA Administration
Sitagliptin Phosphate 100 mg 06/25/25 08:00 06/25/25 07:58
Sitagliptin (Januvia) 100 Mg Tablet PO 07/23/25 07:59 100 mg
DAILY HERLINDA Administration
Tiotropium [place] 2 puff 06/25/25 08:00 06/25/25 07:36
Tiotropium (Spiriva Respimat) 2.5 Mcg Inhaler INH 07/23/25 07:59 2 puff
R DAILY HERLINDA Administration
Home Medications
�Medication �Instructions �Recorded
metformin 500 mg tablet 1,000 mg (2 x 500 mg) PO BID 09/28/21
Diabetes ##0
metoprolol succinate 25 mg 25 mg PO DAILY #90 tabs 09/28/21
tablet,extended release 24 hr
sitagliptin phosphate 100 mg 100 mg PO DAILY Diabetes 09/28/21
tablet (Januvia)
amlodipine 10 mg tablet 10 mg PO HS Blood Pressure 06/24/25
empagliflozin 10 mg tablet 10 mg PO DAILY Diabetes 06/24/25
(Jardiance)
fluticasone furoate 100 1 inh inhalation DAILY 06/24/25
mcg-vilanterol 25 mcg/dose Lung/Breathing Issues
inhalation powder (Breo Ellipta)
ipratropium 0.5 mg-albuterol 3 mg 3 ml inhalation Q6HPRN PRN 06/24/25
(2.5 mg base)/3 mL nebulization shortness of breath
soln
omeprazole 20 mg capsule,delayed 20 mg PO BID GERD 06/24/25
release
tiotropium bromide 1.25 2 puff inhalation DAILY 06/24/25
mcg/actuation mist for inhalation Lung/Breathing Issues
(Spiriva Respimat)
NIH Stroke Score
Subsequent NIH Scale
Date of Subsequent NIH Scale: 06/25/25
Time of Subsequent NIH Scale: 09:45
NIH Stroke Score
Level of Consciousness: 0 - Alert
LOC Questions: 0-Answers both correctly
LOC Commands: 0-Performs both correctly
Best Horizontal Gaze: 0-Normal
Visual Schumacher: 0=Normal, no visual loss
Facial Palsy: 0=Normal, symmetrical
Motor - Right Arm: 1=Drift < 10 seconds
Motor - Left Arm: 0=No drift 10 seconds
Motor - Right Le-No drift 5 seconds
Motor - Left Le-No drift 5 seconds
Limb Ataxia: 0-Absent
Sensation: 0-Normal
Best Language: 1-Mild aphasia
Dysarthria: 1-Mild slurring
Extinction and Inattention: 0-No abnormality
NIH Total Score:: 3
Modified Decker (mRS) Score
Modified Decker Scale (mRS): Slight disability. Able to look after own affairs.
Score: 2

Documented by User: Saeid Renee MD 06/25/25 12:30
NIH Stroke Score
NIH Stroke Score
NIH Total Score:: 3
Modified Decker (mRS) Score
Score: 2
[2025-06-25 08:46] LABS: Glycohemoglobin (HgbA1c) 7.6 % (4.0-5.9)
[2025-06-25 09:43] LABS: Ferritin 6.7 ng/ml (17.9-464.0)
[2025-06-25 10:14] LABS: Folate 13.5 ng/ml (2.76-20); Vitamin B12 247 pg/ml (239-931)
[2025-06-25] MEDS: TOPROL XL PO (11:46)
[2025-06-25 12:02] LABS: Glucose - Point of Care 116 mg/dl (70-99)
--- NOTE | 2025-06-25 12:04 | PTOTSP ---
PER DIEM PHYSICAL THERAPIST ASSISTANT Evaluations
Patient is at risk for dysphagia given admission with concern for possible stroke and comorbidities (i.e., COPD, asthma, GERD). Patient is appropriate to initiate diet as outlined below with compensations.
Patient currently presents with at least mild dysarthria and mild mixed aphasia with expressive greater than receptive language deficits (Quick Aphasia Battery Form 1 score 8.83).
Recommend:
1. Regular, Thin liquids
2. Medications as best tolerated
3. General aspiration and reflux precautions
4. PER DIEM PHYSICAL THERAPIST ASSISTANT f/u to determine if/when instrumental swallow testing warranted, to treat speech/language changes, and complete cognitive linguistic screen. Therapy warranted at next level of care.
--- NOTE | 2025-06-25 12:18 | CM ---
Addendum entered by Thelma Herrera 06/25/25 12:25:
Speech therapy rec skilled therapy as well
Original Note:
Patient seen bedside, initial assessment completed. Patient is a 70 y/o male past medical history of diabetes mellitus, hypertension, hyperlipidemia and asthma who presents with slurred speech.
Patient resides alone in a 2nd floor apartment above a restaurant. 22 steps to enter up to his apartment. Patient is independent w/ ambulation, no device required. Independent w/ ADLs and personal care. Denies SNF/HC hx. Patient stated he does
gardening, whittling, and helps his friends here and there.
Address, points of contact and insurance verified
PCP: Carlos Montenegro
Pharmacy: [facility]
Patient admitted under obs services. RODRIGUEZ form verbally reviewed, copy provided, copy on chart
Therapy assessed patient, recommending home PT and OT at d/c
Plan: Home, HC recommendations
[2025-06-25] MEDS: VITAMIN B-12 1000 MCG PO (14:18)
[2025-06-25] MEDS: VITAMIN B1 100 MG PO (14:18)
[2025-06-25] MEDS: FERRLECIT 110 MG IV (15:46)
[2025-06-25 16:23] LABS: Glucose - Point of Care 117 mg/dl (70-99)
[2025-06-25] MEDS: LIPITOR 80 MG PO (17:03)
[2025-06-25] MEDS: FEOSOL 325 MG PO (20:15)
[2025-06-25] MEDS: NORVASC 10 MG PO (20:15)
[2025-06-25 21:55] LABS: Glucose - Point of Care 147 mg/dl (70-99)
[2025-06-26] VITALS (8 sets, daily range): BP systolic 93–128; BP diastolic 51–61; PULSE 58–75
--- NOTE | 2025-06-26 07:04 | W.PN.HOSP.TC ---
Addendum entered and electronically signed by Kesha Rinaldi MD 06/26/25 18:07:
I saw and evaluated the patient independently. I reviewed and discussed the resident�s note and agree with findings and plan as documented by Dr. Palacios.
GENERAL: well developed, well nourished, male in no apparent distress
HEENT: NC/AT--left eye deviated towards midline (nose)
HEART: regular rate and rhythm, +S1, +S2
LUNGS : clear to auscultation bilaterally
ABDOM: soft, nontender, nondistended, + bowel sounds
EXT: no cyanosis, clubbing, or edema
NEUROLOGIC: grossly intact
Dizziness secondary to transient ischemic attack--but cannot rule out CVA--CTA head and neck negative--MRI confirms acute CVA right parietal and left occipital lobes--apprec neuro--permissive HTN for 24 hours--lipid panel shows LDL not at goal
(88)--start high intensity statin lipitor 80-- ECHO with preserved EF at essentially WNL--will need JOSÉ MIGUEL, apprec cards--cont asa/plavix for 21 days then asa alone thereafter--PT/OT/speech
iron deficiency anemia--ferritin 6.7, B12 low--start repletion 1000mg daily--folate WNL--cont thiamine--pt had outpt scopes done 03/2025?
Diabetes mellitus type 2--cont Dapagliflozin 10 mg, sitagliptin 100 mg--insulin aspart sliding scale
GERD--continue Protonix
Essential Hypertension--Continue metoprolol 25 mg with parameters
Asthma-- Continue ipratropium/albuterol inhaler, tiotropium bromide.
DVT proph
Code-- Full
Original Note:
Today's Communication/Plan
-
Orthostatic vitals?
Echo findings no source for emboli.
Ferritin
1000 mg vit B12 IM administered
folate
GI consulted for iron deficiency anemia with new stroke who needs anticoagulation for JOSÉ MIGUEL.
cardiology consulted, follow-up.
Assessment / Plan
Assessment / Plan
70-year-old male with past history of type 2 diabetes, hypertension, hyperlipidemia, asthma, GERD presented with dizziness and slurred speech which became yesterday morning when he was at his friend's house. The patient noted the onset of dizziness
and found it necessary to sit down on the couch. He confirmed episodes of slurred speech, blurry vision (he is mentioning it is because of his new glasses)occurring at the same time.
# Dizziness secondary to multiple infarct:
BP 166/66--137/64 (permissive hypertension currently on hold for antihypertensives)
I/o=
Labs, WBC 11.4--9.7, Hemoglobin 10.4--10.3.
Chemistry: Sodium 138, potassium 4.2, chloride 106, carbon dioxide 28, bun 28--23 high, creatinine 1.3--1.4, HbA1c pending, blood glucose 169--101 high, hep C antibody pending,
Head and neck CT angiogram: There is moderate disc space narrowing at C4-C5. There is mild narrowing at C3/C4. There is minimal reversal of normal cervical spinal lordosis. This can be seen with muscle spasm. Prevertebral soft tissues appear
normal.Overall mild atherosclerotic vascular disease.
EKG: Normal sinus rhythm, right bundle branch block, inferior infarct, T wave inversion.(Which was noted on the previous EKG on 2018).
Labs: Hemoglobin 10.3--10.4, blood glucose 117--147--169--101. HbA1c 7.6 high
MRI scan: Tiny acute or subacute infarcts in the right parietal lobe and left occipital lobe.
Chronic senescent changes, chronic lacunar infarcts.
On 06/25 echo:
1. Ejection fraction is 52% by volumetric assessment.
2. Compared to a prior transthoracic echocardiogram study from September 2021 no significant changes are seen.
3. Trileaflet calcified aortic valve with adequate leaflet excursion. Mild aortic insufficiency.
4. Mild concentric left ventricular hypertrophy
Echo order placed to assess the primary source for TIA
He is currently on aspirin 81 mg, clopidogrel 75 mg day 2 for 21 days followed by baby aspirin 81 mg continue.
Currently on permissive hypertension.
Lipid profile results showed LDL 88, goal LDL has to be less than 70, atorvastatin dosage increased to 80 mg
#Neurology consulted recommended for IV iron by mouth iron replaced, to follow orthostatics, advised to initiate B12 if B12 level is less than 400.
Recommended to continue aspirin and clopidogrel for 21 days, then discontinue of clopidogrel.
# He has hypereosinophilia 14.2--14.4. Probably due to cholesterol emboli his eosinophil count increased.
#Today TTE showed normal findings, planning for transesophageal echo tomorrow to find the secondary source for multiple infarcts in the brain probably carotid artery stenosis, cardiac cholesterol emboli.
Consulted collar worker for JOSÉ MIGUEL for tomorrow.
# Vitamin B12 deficiency:
Vitamin B12-247 low
today vitamin L66--[id number] IM administered.
# Iron deficiency anemia:
Ferritin 6.7 low,
Iron tablet prescribed
# Diabetes mellitus:
Dapagliflozin 10 mg, sitagliptin 100 mg,
insulin aspart sliding scale
# GERD continue Protonix
# Hypertension: Continue metoprolol 25 mg
# Asthma: Continue ipratropium/albuterol inhaler, tiotropium bromide.
# Speech evaluation completed and recommended to continue liquid, soft foods.
#Consulted PT,OT, ST
# Consulted GI for iron deficiency anemia requiring anticoagulant for tomorrow's JOSÉ MIGUEL procedure.
DVT: SVT
Code: Full
Diet: Resume low-cholesterol, diabetic diet.
Disposition: home (22 steps to apartment)
Anticipated Discharge: > 48 hours
Subjective/Interval History
-
Date of Service: June 26, 2025
Overnight he has no concern for chest pain, palpitation, dizziness, headache, blurry vision, weakness, confusion, falling down, numbness, nausea, vomiting. However he has still slurred speech.
Vitals: BP 131/63---114/55, Tmax 98.1, MA 60, RR 18.
.
Objective Data
-
Labs:
Laboratory Results
06/26/25
06:00
WBC Pending
Hgb Pending
Hct Pending
Plt Count Pending
Sodium Pending
Potassium Pending
Chloride Pending
Carbon Dioxide Pending
BUN Pending
Creatinine Pending
Glucose Pending
Calcium Pending
Total Bilirubin Pending
AST Pending
ALT Pending
Alkaline Phosphatase Pending
Vital Signs:
Vital Signs
Temp Pulse Resp BP Pulse Ox
97.8 F 56 18 115/59 93
06/26/25 03:06 06/26/25 03:06 06/26/25 03:06 06/26/25 03:06 06/26/25 03:06
I&O
06/25/25 06/26/25 06/27/25
06:59 06:59 06:59
Intake Total 0 / 0 480 / 480
Output Total 1025 / 1025 500 / 500
Balance -1025 / -1025 -20 / -20
Review of Systems
-
History Source: Patient
All other systems: Reviewed and negative
Physical Exam
-
General: Well Nourished and No Apparent Distress
Respiratory: Clear to Auscultation
Cardiac: Regular Rhythm and S1/S2
GI: Soft, Nontender and Nondistended
Genito-urinary: No Costovertebral Tender
Musculoskeletal: No Clubbing
Neuro: AO x 3, No Motor Deficits, Nonfocal/Grossly Intact, No Sensory Deficits, DTR's Intact & Symmetrica, Slurred Speech and Other (No diplopia, dysarthria, facial nerve palsy signs.))
Hematologic / Lymphatic: No Lymphadenopathy
Psych: Calm
[2025-06-26] MEDS: SYMBICORT 160/4.5 MCG INHALER 2 PUFF INH ×2 (07:29→19:54)
[2025-06-26] MEDS: SPIRIVA RESPIMAT 2.5 MCG 2 PUFF INH (07:29)
[2025-06-26 07:51] LABS: Glucose - Point of Care 113 mg/dl (70-99)
[2025-06-26 08:00] LABS: Hematocrit 34.2 % (39.0-52.0); Hemoglobin 10.4 g/dL (13.0-18.0); Mean Corp Hgb Conc. 30.4 g/dL (33.0-37.0); Mean Corpuscular Volume 82.4 fL (80.0-94.0); Nucleated Red Blood Cells % 0 % (-); Platelet Count 202 10^3/uL (130-400); Red Cell Dist. Width 15.9 % (11.5-14.5)
[2025-06-26 08:57] LABS: ALT (SGPT) 14 U/L (0-50); AST (SGOT) 17 U/L (17-59); Albumin 3.7 g/dl (3.5-5.0); Alkaline Phosphatase 75 U/L (38-126); Blood Urea Nitrogen 20 mg/dl (9-20); Calcium 8.7 mg/dl (8.4-10.2); Carbon Dioxide 31 mmol/L (22-30); Chloride 103 mmol/L (98-107); Estimated Creatinine Clearance 44 ml/min; Glucose 104 mg/dl (70-99); Potassium 4.4 mmol/L (3.5-5.1); Sodium 136 mmol/L (135-145); Total Protein 7.0 g/dl (6.3-8.2); eGFR 53.74
[2025-06-26] MEDS: PLAVIX 75 MG PO (09:04)
[2025-06-26] MEDS: PROTONIX 40 MG PO ×2 (09:04→19:42)
[2025-06-26] MEDS: LOW STRENGTH ASPIRIN 81 MG PO (09:04)
[2025-06-26] MEDS: VITAMIN B-12 1000 MCG PO (09:04)
[2025-06-26] MEDS: VITAMIN B1 100 MG PO (09:04)
[2025-06-26] MEDS: TOPROL XL PO (09:05)
[2025-06-26] MEDS: FARXIGA 10 MG PO (11:36)
[2025-06-26] MEDS: JANUVIA 100 MG PO (11:36)
[2025-06-26] MEDS: CYANOCOBALAMIN 1000 MCG IM (11:36)
[2025-06-26 11:38] LABS: Glucose - Point of Care 104 mg/dl (70-99)
--- NOTE | 2025-06-26 14:17 | CON.CAR ---
Addendum entered and electronically signed by Sary Bar MD 06/26/25 15:25:
I saw and examined the patient.
The Assistant Professor Surgical Technology's note was reviewed and I agree with the note.
Comment: General: Well developed, well nourished in NAD.
Heart: Non displaced PMI, RRR, no murmurs, No S3, S4, no rubs.
Lungs: Clear to auscultation bilaterally, no wheeze, rhonchi, rubs bilaterally,
Extremities: No clubbing, cyanosis or edema bilaterally.
Neuro: Grossly nonfocal, awake, alert
Initially presented with stroke type symptoms of dizziness and dysarthria. He underwent imaging with tiny acute/subacute infarcts right parietal and left occipital lobes. Concern for cardiac source of emboli given by hemispheric nature of the
lesions. I reviewed all imaging studies. Reviewed telemetry and EKG. Very short runs of PAT a few beats noted with no sustained arrhythmias. Echocardiogram also reviewed and summarized below with normal left ventricular ejection fraction and no
obvious significant abnormality. Patient also with anemia with recent evaluation which was stable.
Plan at this time:
-Possible of cardioembolic CVA.
- Agree with plan for transesophageal echocardiogram. Discussed risks and benefits with the patient at length and he is agreeable to proceed. No swallowing difficulties noted.
- Agree with plan for implantable loop monitor given high risk for atrial arrhythmias and consistency with possible cardioembolic foci on MRI. We discussed procedure and he is agreeable to proceed.
- Continue risk factor modification with good blood pressure control. Agree with starting lipid-lowering.
- Continue control of diabetes.
- Dual antiplatelet therapy per neurology.
All questions answered.
Original Note:
Consultation
Consultation Request
Date/Time Consultation Requested: 06/26/2025
Date/Time Consultation Performed: 06/26/2025
Requesting Provider: Dr. Rinaldi
Performing Provider: Dr. Sary Bar
Reason for Consultation: Bihemispheric CVA and evaluation for possible cardioembolic source
Medical History
-
History of Present Illness:
Patient came to the ER with symptoms of dizziness and dysarthria and was admitted for possible stroke and cardiology is now consulted for evaluation for possible cardioembolic source. Patient lives alone, but he went to his neighbor/friend's home
and they felt he was not acting like himself and he confessed that he was having some dizziness and then they noticed dysarthria and 911 was called. MRI of the brain shows tiny acute or subacute infarcts in the right parietal and left occipital
lobes. Echo from 06/25/2025 was reviewed by me and summarized above, EF is preserved. Patient has been started on aspirin and Plavix and cardiology consulted to look for possible cardioembolic source of bihemispheric CVA. Telemetry from admission
thus far reviewed by me shows a short run of less than 10 beats of PAT, but no other atrial arrhythmia.
PMH:
DM2
HTN
Past Medical History
Past Medical History: Other (In HPI)
Past Surgical History: Orthopedic
Social History
Tobacco: Non-Smoker
Alcohol: Occasional (Less than once a month)
Drug: None
Personal: Single
Living: Alone (But has)
Family History
Family History: Other (CVA and diabetes)
Allergies / Home Medications
Allergy/AdvReac Type Severity Reaction Status Date / Time
No Known Allergies Allergy Verified 06/24/25 18:50
�Medication �Instructions �Recorded �Confirmed �Type
metformin 500 mg tablet 1,000 mg (2 x 500 mg) PO BID 09/28/21 06/24/25 Rx
Diabetes ##0
metoprolol succinate 25 mg 25 mg PO DAILY #90 tabs 09/28/21 06/24/25 Rx
tablet,extended release 24 hr
sitagliptin phosphate 100 mg 100 mg PO DAILY Diabetes 09/28/21 06/24/25 History
tablet (Januvia)
amlodipine 10 mg tablet 10 mg PO HS Blood Pressure 06/24/25 06/24/25 History
empagliflozin 10 mg tablet 10 mg PO DAILY Diabetes 06/24/25 06/24/25 History
(Jardiance)
fluticasone furoate 100 1 inh inhalation DAILY 06/24/25 06/24/25 History
mcg-vilanterol 25 mcg/dose Lung/Breathing Issues
inhalation powder (Breo Ellipta)
ipratropium 0.5 mg-albuterol 3 mg 3 ml inhalation Q6HPRN PRN 06/24/25 06/24/25 History
(2.5 mg base)/3 mL nebulization shortness of breath
soln
omeprazole 20 mg capsule,delayed 20 mg PO BID GERD 06/24/25 06/24/25 History
release
tiotropium bromide 1.25 2 puff inhalation DAILY 06/24/25 06/24/25 History
mcg/actuation mist for inhalation Lung/Breathing Issues
(Spiriva Respimat)
Review of Systems
-
History Source: Patient
All other systems: Negative unless noted
Physical Exam
Vital Signs
Temp Pulse Resp BP Pulse Ox
98.3 F 60 18 126/55 94
06/26/25 11:06 06/26/25 11:06 06/26/25 11:06 06/26/25 11:06 06/26/25 11:06
GEN: NAD AAO x 3
HEENT: MMM, strabismus
LUNGS: RA. CTA B/L, no wheeze
CV: SR on telemetry. Reg, S1/S2, no murmur
ABD: ND
EXT: No edema B/L LE
NEURO: Gross non-focal
SKIN: No rash
Lab Results
06/26/25 07:35
06/26/25 07:35
Impression / Plan
-
PCP: Dr. Carlos Montenegro
Cardiology: Dr. Alvarez
Impression:
Admitted with dizziness and dysarthria and possible stroke 06/24/2025
Bihemispheric CVA on MRI of brain 06/25/2025
Iron deficiency anemia
B12 deficiency
DM2
HTN
Echo 06/25/2025: EF 52%, mild aortic insufficiency, compared to echo from 09/2021 there are no changes
Plan:
-Patient came to the ER with symptoms of dizziness and dysarthria and was admitted for possible stroke and cardiology is now consulted for evaluation for possible cardioembolic source. Patient lives alone, but he went to his neighbor/friend's home
and they felt he was not acting like himself and he confessed that he was having some dizziness and then they noticed dysarthria and 911 was called. MRI of the brain shows tiny acute or subacute infarcts in the right parietal and left occipital
lobes. Echo from 06/25/2025 was reviewed by me and summarized above, EF is preserved. Patient has been started on aspirin and Plavix and cardiology consulted to look for possible cardioembolic source of bihemispheric CVA. Telemetry from admission
thus far reviewed by me shows a short run of less than 10 beats of PAT, but no other atrial arrhythmia.
-ECG reviewed by me is SR. Telemetry reviewed by me shows a short run of PAT, no evidence of A-fib/flutter
-Patient has had a bihemispheric CVA and there is concern for cardioembolic source of emboli. Echo and telemetry monitoring unremarkable thus far. Reviewed with patient the option of proceeding with JOSÉ MIGUEL and pending those results proceeding with
Linq implantation. We discussed JOSÉ MIGUEL procedure and we discussed risks and benefits, patient would like to proceed. We also reviewed Linq monitor implantation including risks and benefits and we talked about a 2 to 3-year battery longevity, patient
would like to proceed.
-Patient noted to have iron deficiency anemia and had an outpatient workup with GI 03/2025 that was essentially unremarkable. If patient requires OAC he has been cleared for that from a GI standpoint. Patient is tolerating DAPT thus far.
-LDL 88 and patient was started on atorvastatin 80 mg daily
-Patient has been normotensive with his usual doses of Toprol-XL 25 mg daily and amlodipine 10 mg daily this admission
--- NOTE | 2025-06-26 15:09 | CM ---
Patient seen at bedside with physician. Patient friend also at bedside Melly from [facility] Patient friend/neighbor [phone] Don Salamanca has patient stay with him at [address] [place] [address] when patient needs further support.
Patient when at his apartment needs to go up 22 steps. Patient will need outpatient speach follow up as outpatient and patient would like referral to [facility] for follow up. Patient plan is home with outpatient/vs home VN supports. CM will continue to
follow for discharge planning needs.
Plan; home with VN and neighbor support
[2025-06-26 16:47] LABS: Glucose - Point of Care 126 mg/dl (70-99)
[2025-06-26] MEDS: LIPITOR 80 MG PO (17:34)
[2025-06-26 18:46] LABS: Hepatitis C Antibody Negative (Negative)
[2025-06-26] MEDS: NORVASC 10 MG PO (21:11)
[2025-06-26] MEDS: FEOSOL 325 MG PO (21:11)
[2025-06-26 21:24] LABS: Glucose - Point of Care 118 mg/dl (70-99)
[2025-06-27] VITALS (9 sets, daily range): BP systolic 90–129; BP diastolic 45–66; PULSE 68–91
[2025-06-27 06:05] LABS: Glucose - Point of Care 83 mg/dl (70-99)
--- NOTE | 2025-06-27 07:09 | W.PN.HOSP.TC ---
Addendum entered and electronically signed by Kesha Rinaldi MD 06/27/25 17:38:
I saw and evaluated the patient independently. I reviewed and discussed the resident�s note and agree with findings and plan as documented by Dr. Palacios.
GENERAL: well developed, well nourished, male in no apparent distress--shivering as if he is cold, temp 99.2
HEENT: NC/AT--left eye deviated towards midline (nose)
HEART: regular rate and rhythm, +S1, +S2
LUNGS : clear to auscultation bilaterally
ABDOM: soft, nontender, nondistended, + bowel sounds
EXT: no cyanosis, clubbing, or edema
NEUROLOGIC: grossly intact
Dizziness secondary to transient ischemic attack--but cannot rule out CVA--CTA head and neck negative--MRI confirms acute CVA right parietal and left occipital lobes, apprec cards--SAMIR cannot exclude a left atrial appendage clot--apprec
neuro--permissive HTN for 24 hours--lipid panel shows LDL not at goal (88)--start high intensity statin lipitor 80-- ECHO with preserved EF at essentially WNL--stop asa/plavix and starting eliquis--Linq also placed
iron deficiency anemia--ferritin 6.7, B12 low--start repletion 1000mg daily--folate WNL--cont thiamine--pt had outpt scopes done 03/2025?
Diabetes mellitus type 2--cont Dapagliflozin 10 mg, sitagliptin 100 mg--insulin aspart sliding scale
GERD--continue Protonix
Essential Hypertension--Continue metoprolol 25 mg with parameters
Asthma-- Continue ipratropium/albuterol inhaler, tiotropium bromide.
DVT proph
Code-- Full
Original Note:
Today's Communication/Plan
-
SAMIR results indicates left atrial appendage thrombus, planning to start anticoagulation therapy.
CBC, CMP
Assessment / Plan
Assessment / Plan
70-year-old male with past history of type 2 diabetes, hypertension, hyperlipidemia, asthma, GERD presented with dizziness and slurred speech which became yesterday morning when he was at his friend's house. The patient noted the onset of dizziness
and found it necessary to sit down on the couch. He confirmed episodes of slurred speech, blurry vision (he is mentioning it is because of his new glasses)occurring at the same time.
# Dizziness secondary to multiple infarct:
Vitals his BP 103/45, pulse rate 62, temp 97.7, RR 18, oxygen saturation 93.
Labs: WBC 10.1--11.2 high,
hemoglobin 10.4--10.6
Chemistry: Bun 20--23 high, creatinine 1.4, blood glucose 104--91
Hep C negative
POC 118--83 in normal range.
I/o=
Head and neck CT angiogram: There is moderate disc space narrowing at C4-C5. There is mild narrowing at C3/C4. There is minimal reversal of normal cervical spinal lordosis. This can be seen with muscle spasm. Prevertebral soft tissues appear
normal.Overall mild atherosclerotic vascular disease.
EKG: Normal sinus rhythm, right bundle branch block, inferior infarct, T wave inversion.(Which was noted on the previous EKG on 2018).
MRI scan: Tiny acute or subacute infarcts in the right parietal lobe and left occipital lobe.
Chronic senescent changes, chronic lacunar infarcts.
On 06/25 echo:
1. Ejection fraction is 52% by volumetric assessment.
2. Compared to a prior transthoracic echocardiogram study from September 2021 no significant changes are seen.
3. Trileaflet calcified aortic valve with adequate leaflet excursion. Mild aortic insufficiency.
4. Mild concentric left ventricular hypertrophy
He is currently on aspirin 81 mg, clopidogrel 75 mg day 3 for 21 days followed by baby aspirin 81 mg continue.
Currently on permissive hypertension.
Lipid profile results showed LDL 88, goal LDL has to be less than 70, atorvastatin dosage increased to 80 mg
#Neurology consulted recommended for IV iron by mouth iron replaced, to follow orthostatics, advised to initiate B12 if B12 level is less than 400.
Recommended to continue aspirin and clopidogrel for 21 days, then discontinue of clopidogrel.
# He has hypereosinophilia 14.2--14.4--4.2. Probably due to cholesterol emboli his eosinophil count increased.
# Around 1:30 PM gaming cage worker TT message mentioned: left atrial appendage thrombus, although not clear on samir cannot be excluded.Would proceed with anticoagulation given stroke as long as OK with neurology to start now. Going to implant the link
monitor to get a sense of a fib and burden which has been suspected. And planning to discuss this with patient once he returns to the floor.
# Vitamin B12 deficiency:
Vitamin B12-247 low
vitamin U00--2053cq IM administered.
# Iron deficiency anemia:
Ferritin 6.7 low,
Iron tablet prescribed
# Diabetes mellitus:
Dapagliflozin 10 mg, sitagliptin 100 mg,
insulin aspart sliding scale
# GERD continue Protonix
# Hypertension: Continue metoprolol 25 mg
# Asthma: Continue ipratropium/albuterol inhaler, tiotropium bromide.
# Speech evaluation completed and recommended to continue liquid, soft foods.
#Consulted PT,OT, ST.
# While call his neighbor MR. DEVORAH olivera who the patient is currently living regards to his disposition.
DVT: SCD
Code: Full
Diet: Resume low-cholesterol, diabetic diet.
Disposition: home (22 steps to apartment)
Anticipated Discharge: > 48 hours
Subjective/Interval History
-
Date of Service: June 27, 2025
Overnight he feels his slurred speech much improved, however he denies chest pain, palpitation, nausea, vomiting, dizziness, memory impairment, weakness, fatigue.
Today he is scheduled for SAMIR around 2 PM by gaming cage worker and currently on n.p.o. and agreed to implant loop monitor given high risk of atrial arrhythmia and consistency with possible cardioembolic foci on MRI.
Objective Data
-
Labs:
Laboratory Results
11/21/25
06:00
WBC Pending
Hgb Pending
Hct Pending
Plt Count Pending
Sodium Pending
Potassium Pending
Chloride Pending
Carbon Dioxide Pending
BUN Pending
Creatinine Pending
Glucose Pending
Calcium Pending
Total Bilirubin Pending
AST Pending
ALT Pending
Alkaline Phosphatase Pending
Vital Signs:
Vital Signs
Temp Pulse Resp BP Pulse Ox
98.0 F 63 14 107/47 94
06/27/25 03:15 06/27/25 03:15 06/27/25 03:15 06/27/25 03:15 06/27/25 03:15
I&O
06/26/25 06/27/25 06/28/25
06:59 06:59 06:59
Intake Total 480 / 480 795 / 795
Output Total 500 / 500 400 / 400
Balance -20 / -20 395 / 395
Review of Systems
-
History Source: Patient
All other systems: Reviewed and negative
Physical Exam
-
General: Well Developed and No Apparent Distress
Respiratory: Clear to Auscultation
Cardiac: Regular Rhythm and S1/S2
GI: Soft and Nontender
Genito-urinary: No Costovertebral Tender
Musculoskeletal: No Clubbing and No Cyanosis
Skin: Warm
Neuro: AO x 3 and Slurred Speech (Improved comparing from yesterday)
Hematologic / Lymphatic: No Lymphadenopathy
Psych: Calm
[2025-06-27] MEDS: SYMBICORT 160/4.5 MCG INHALER 2 PUFF INH ×2 (07:35→19:55)
[2025-06-27] MEDS: SPIRIVA RESPIMAT 2.5 MCG 2 PUFF INH (07:35)
[2025-06-27 07:55] LABS: Hematocrit 34.3 % (39.0-52.0); Hemoglobin 10.6 g/dL (13.0-18.0); Mean Corp Hgb Conc. 30.9 g/dL (33.0-37.0); Mean Corpuscular Volume 82.9 fL (80.0-94.0); Nucleated Red Blood Cells % 0 % (-); Platelet Count 208 10^3/uL (130-400); Red Cell Dist. Width 16.0 % (11.5-14.5)
[2025-06-27 08:07] LABS: ALT (SGPT) 13 U/L (0-50); AST (SGOT) 15 U/L (17-59); Albumin 3.6 g/dl (3.5-5.0); Alkaline Phosphatase 84 U/L (38-126); Blood Urea Nitrogen 23 mg/dl (9-20); Calcium 8.9 mg/dl (8.4-10.2); Carbon Dioxide 30 mmol/L (22-30); Chloride 102 mmol/L (98-107); Estimated Creatinine Clearance 44 ml/min; Glucose 91 mg/dl (70-99); Potassium 4.2 mmol/L (3.5-5.1); Sodium 135 mmol/L (135-145); Total Protein 7.0 g/dl (6.3-8.2); eGFR 53.74
[2025-06-27] MEDS: TOPROL XL PO (10:09)
[2025-06-27] MEDS: LOW STRENGTH ASPIRIN 81 MG PO (10:10)
[2025-06-27] MEDS: PLAVIX 75 MG PO (10:10)
[2025-06-27] MEDS: PROTONIX 40 MG PO ×2 (10:10→20:19)
--- NOTE | 2025-06-27 11:22 | PTCARENOTE ---
Patient's neighbor Don in to see patient. An update was given to Don with Patient's approval. Don requesting an update from B[employer]. Don is the patient's caregiver. ediscovery project manager made aware of Don's request, phone number conformed and
sent to family independence case manager.
--- NOTE | 2025-06-27 13:08 | PTCARENOTE ---
Patient ambulating to bathroom with assist X1. Patient can be a bit unsteady. Patient tolerated sitting in chair for 2 hours. Patient tolerated diet, no c/o pain.
[2025-06-27 13:56] LABS: Glucose - Point of Care 90 mg/dl (70-99)
--- NOTE | 2025-06-27 14:01 | ITS.CL.IMPLP ---
Insurance Sales Executive - Implant Loop
Implant Loop
Procedure Report:
Primary Physician: Dr Carlos Montenegro
Primary Metal Precision Machine Assembler: Dr Juliana Alvarez
Procedure Date: 06/27/2025
Procedure: Placement of a loop recorder.
History/Indication:
1. See office H&P for complete history.
2. Patient is a pleasant 70-year-old male with a past medical history significant for hypertension, diabetes, iron deficiency anemia, B12 deficiency, who had presented with dizziness, dysarthria, concern for CVA. Patient was noted to have
bihemispheric CVA on MRI. Patient underwent JOSÉ MIGUEL to rule out cardioembolic source which demonstrated preserved LVEF but could not rule out left atrial appendage thrombus. Due to patient's CVA of unclear etiology and concern for cardioembolic
source, patient undergo ILR implant for longitudinal surveillance for arrhythmia.
Method:
After informed consent was obtained, the patient was brought to the EP laboratory holding area in a fasting, non-sedated state. Peripheral access was established. The left chest was prepared and draped in a sterile fashion. A 'time out' was
called. Local anesthesia was injected in the subcutaneous tissue. The ILR was injected under the skin. Topical skin adhesive was applied. Following the procedure, the patient was taken to the recovery area in stable condition. No complications
were noted.
Device Data:
[employer]tronic; Model# LINQII; Serial# [id number]
Conclusion:
Successful placement of a loop recorder.
Recommendations:
1. Follow-up will be arranged in the [facility] in 7-10 days for wound check.
2. Routine ILR care.
Kalpesh Jackson, , [facility]
Clinical Cardiac Flamer After Lasting
cc: Dr Carlos Montenegro; Dr Juliana Alvarez
--- NOTE | 2025-06-27 14:27 | W.PN.CARDCBS ---
Addendum entered and electronically signed by Sary Bar MD 06/27/25 14:57:
I saw and examined the patient.
The Manufacturing Associate's note was reviewed and I agree with the note.
Comment: Exam stable without change. Status post Linq bandage in place.
Vital signs stable.
I spoke with patient at great length. He was admitted with dizziness and dysarthria and noted to have bihemispheric CVA on MRI of the brain 06/25/2025.
Transesophageal echocardiogram 06/27/2025 cannot exclude left atrial appendage thrombus given haziness noted. Given presentation and probable left atrial appendage thrombus we discussed the risks and benefits of proceeding with Eliquis oral
anticoagulation. Patient is agreeable. Bleeding risk discussed. All questions answered.
-Eliquis 5 mg twice daily will be started as long as neurology agrees.
-Monitor Linq for atrial fibrillation and atrial fibrillation burden.
Follow-up arranged in our office. We will sign off.
Original Note:
Today's Communication / Plan
-
s/p Linq placement
JOSÉ MIGUEL w/ possible PARADISE thrombus, plan to start Eliquis 5mg BID if OK per neurology.
Continue lipitor
Follow up arranged.
Impression / Plan
-
PCP: Dr. Carlos Montenegro
Cardiology: Dr. Alvarez
Impression:
Admitted with dizziness and dysarthria and possible stroke 06/24/2025
Bihemispheric CVA on MRI of brain 06/25/2025
s/p Linq implant 06/27/2025
Haziness of PARADISE by JOSÉ MIGUEL 06/27/2025, cannot exclude PARADISE thrombus
Iron deficiency anemia
B12 deficiency
DM2
HTN
Echo 06/25/2025: EF 52%, mild aortic insufficiency, compared to echo from 09/2021 there are no changes
JOSÉ MIGUEL 06/27/2025: Official report pending
Plan:
-Presented with dizziness and dysarthria. Found to have bihemispheric CVA on MRI of brain 06/25/2025.
-Given concern for cardioembolic source, patient underwent JOSÉ MIGUEL 06/27 which found a haziness of the PARADISE, which may be PARADISE thrombus. Would recommend starting Eliquis 5mg BID for anticoagulation if OK w/ neurology. TT sent to neurology to review.
-Patient noted to have iron deficiency anemia and had an outpatient workup with GI 03/2025 that was essentially unremarkable. If patient requires OAC he has been cleared for that from a GI standpoint.
-Remains in SR on review of telemetry with no evidence of atrial fibrillation noted. s/p Linq placement 06/27/2025 for ongoing monitoring.
-LDL 88 and patient was started on atorvastatin 80 mg daily
-BP stable. Continue Toprol and amlodipine.
-Cardiology follow up arranged.
HPI: Patient came to the ER with symptoms of dizziness and dysarthria and was admitted for possible stroke and cardiology is now consulted for evaluation for possible cardioembolic source. Patient lives alone, but he went to his neighbor/friend's
home and they felt he was not acting like himself and he confessed that he was having some dizziness and then they noticed dysarthria and 911 was called. MRI of the brain shows tiny acute or subacute infarcts in the right parietal and left
occipital lobes. Echo from 06/25/2025 was reviewed by me and summarized above, EF is preserved. Patient has been started on aspirin and Plavix and cardiology consulted to look for possible cardioembolic source of bihemispheric CVA. Telemetry from
admission thus far reviewed by me shows a short run of less than 10 beats of PAT, but no other atrial arrhythmia.
Progress Note - Shipping Clerk Packing
Subjective
Date of Service: June 27, 2025
Feeling well. No current complaints.
Objective
Labs:
06/27/25 07:21
06/27/25 07:21
Labs
Hgb 10.6 g/dL (13.0-18.0) L 06/27/25 07:21
Hct 34.3 % (39.0-52.0) L 06/27/25 07:21
Plt Count 208 10^3/uL (130-400) 06/27/25 07:21
Sodium 135 mmol/L (135-145) 06/27/25 07:21
Potassium 4.2 mmol/L (3.5-5.1) 06/27/25 07:21
BUN 23 mg/dl (9-20) H 06/27/25 07:21
Creatinine 1.4 mg/dL (0.7-1.3) H 06/27/25 07:21
Glucose 91 mg/dl (70-99) 06/27/25 07:21
Vital Signs and I&O:
Vital Signs
Temp Pulse Resp BP Pulse Ox
97.8 F 62 18 103/45 97
06/27/25 11:54 06/27/25 07:57 06/27/25 11:54 06/27/25 07:57 06/27/25 11:54
Vital Signs
Temp Pulse Resp BP Pulse Ox
97.8 F 62 18 103/45 97
06/27/25 11:54 06/27/25 07:57 06/27/25 11:54 06/27/25 07:57 06/27/25 11:54
Intake & Output
06/25/25 06/26/25 06/27/25 06/28/25
06:59 06:59 06:59 06:59
Intake Total 0 / 0 480 / 480 795 / 795
Output Total 1025 / 1025 500 / 500 400 / 400
Balance -1025 / -1025 -20 / -20 395 / 395
Physical Exam
Physical Exam
GEN: NAD AAO x 3
HEENT: MMM, strabismus
LUNGS: CTA B/L, no wheeze
CV: Reg, S1/S2, no murmur
EXT: No clubbing, cyanosis, or edema
NEURO: Gross non-focal
SKIN: warm, dry, no rash. Chest dressing c/d/i
[2025-06-27] MEDS: VITAMIN B-12 1000 MCG PO (14:31)
[2025-06-27] MEDS: FARXIGA 10 MG PO (14:31)
[2025-06-27] MEDS: VITAMIN B1 100 MG PO (14:31)
[2025-06-27] MEDS: JANUVIA 100 MG PO (14:31)
--- NOTE | 2025-06-27 14:42 | W.PN.NEURO.1 ---
Today's Communication / Plan
-
.
Neuro Assessment/Plan
Assessment
Abrupt onset of change mental status, speech changes
Most likely due to combination of lacunar ischemic strokes and metabolic challenges
Plan
Based on abnormalities demonstrated by JOSÉ MIGUEL, would replace both aspirin and clopidogrel with the use of apixaban immediately as prior strokes were lacunar and greater than 48 hours since onset of symptoms.
With IV iron and by mouth iron replaced low iron storage levels
Check blood work for additional metabolic abnormalities
Initiate B12 if B12 level is less than 400
Goal of normoglycemia
Will follow as needed
Subjective/Objective
Subjective Data
Date of Service: June 27, 2025
Objective Data
Vital Signs
Temp Pulse Resp BP Pulse Ox
36.6 C 62 18 103/45 97
06/27/25 11:54 06/27/25 07:57 06/27/25 11:54 06/27/25 07:57 06/27/25 11:54
Lab Results
06/27/25 07:21
06/27/25 07:21
Sodium 135 mmol/L (135-145) 06/27/25 07:21
Potassium 4.2 mmol/L (3.5-5.1) 06/27/25 07:21
BUN 23 mg/dl (9-20) H 06/27/25 07:21
Glucose 91 mg/dl (70-99) 06/27/25 07:21
Calcium 8.9 mg/dl (8.4-10.2) 06/27/25 07:21
LDL Cholesterol, Calc 88 mg/dl 06/25/25 05:53
Vitamin B12 247 pg/ml (239-931) 06/25/25 05:53
Patient Allergies
No Known Allergies Allergy (Verified 06/24/25 18:50)
Data Reviewed
-
Echocardiogram: Report Reviewed
Reviewed with: Nurse Practioner
Old Records: Summarized
Past History
Past History
ED Past Medical History: CVA, HTN, NIDDM and Other (strabismus )
ED Past Surgical History: Orthopedic
Social History
Personal: Single
Employment: Employed
Family History
Family History: Other (Reviewed and noncontributory)
Medications
-
Medications:
Generic Name Dose Route Start Last Admin
Trade Name Freq PRN Reason Stop Dose Admin
Acetaminophen 650 mg 06/25/25 00:01
Acetaminophen 650 Mg Rectal Suppository RECTAL 07/23/25 00:00
Q4HPRN PRN
SOUTH, mild pain, or temp >100.4F
Acetaminophen 650 mg 06/25/25 00:01
Acetaminophen 325 Mg Tablet PO 07/23/25 00:00
Q4HPRN PRN
SOTUH, mild pain, or temp >100.4F
Albuterol/Ipratropium 3 ml 06/25/25 00:01
Ipratropium 0.5/Albuterol 3 Mg (3 Ml Ampul) INH
R Q6HPRN PRN
shortness of breath
Protocol
Amlodipine Besylate 10 mg 06/25/25 22:00 06/26/25 21:11
Amlodipine 10 Mg Tablet PO 07/23/25 21:59 10 mg
HS HERLINDA Administration
Aspirin 81 mg 06/25/25 08:00 06/27/25 10:10
Aspirin 81 Mg Chewable Tablet PO 07/23/25 07:59 81 mg
DAILY HERLINDA Administration
Atorvastatin Calcium 80 mg 06/25/25 18:00 06/26/25 17:34
Atorvastatin (Lipitor) 80 Mg Tablet PO 07/23/25 17:59 80 mg
QPM HERLINDA Administration
Budesonide/Formoterol Fumarate 2 puff 06/25/25 08:00 06/27/25 07:35
Symbicort Inhaler 160/4.5 INH 07/23/25 07:59 2 puff
R BID HERLINDA Administration
Clopidogrel Bisulfate 75 mg 06/25/25 08:00 06/27/25 10:10
Clopidogrel 75 Mg Tablet PO 07/23/25 07:59 75 mg
DAILY HERLINDA Administration
Cyanocobalamin (Vitamin B12) 1,000 mcg 06/25/25 12:30 06/27/25 14:31
Cyanocobalamin (Vitamin B-12) 500 Mcg Tablet PO 07/23/25 12:29 1,000 mcg
DAILY HERLINDA Administration
Dapagliflozin 10 mg 06/25/25 08:00 06/27/25 14:31
Dapagliflozin (Farxiga) 10 Mg Tablet PO 07/23/25 07:59 10 mg
DAILY HERLINDA Administration
Dextrose 12.5 grams 06/25/25 00:01
Dextrose 50% (0.5 Grams/Ml) 50 Ml Syringe IV 07/23/25 00:00
[id number] PRN
hypoglycemia
Protocol
Docusate Sodium 100 mg 06/25/25 09:54
Docusate Sodium 100 Mg Capsule PO 07/23/25 09:53
BIDPRN PRN
no BM > 24 hours
Ferrous Sulfate 325 mg 06/25/25 22:00 06/26/25 21:11
Ferrous Sulfate 325 Mg Tablet PO 07/23/25 21:59 325 mg
HS HERLINDA Administration
Glucagon 1 mg 06/25/25 00:01
Glucagon 1 Mg Vial IM 07/23/25 00:00
PRN PRN
hypoglycemia
Protocol
Insulin Aspart 0 units 06/27/25 16:30
Insulin Aspart Low Resistance 300 Units/3 Ml Pen.Injctr SC 07/25/25 16:29
AC HERLINDA
Protocol
Metoprolol Succinate 25 mg 06/25/25 08:00 06/27/25 10:09
Metoprolol 25 Mg Extended Release Tablet PO 07/23/25 07:59 Not Given
DAILY HERLINDA
Pantoprazole Sodium 40 mg 06/25/25 08:00 06/27/25 10:10
Pantoprazole 40 Mg Delayed Release Tablet PO 07/23/25 07:59 40 mg
BID HERLINDA Administration
Sitagliptin Phosphate 100 mg 06/25/25 08:00 06/27/25 14:31
Sitagliptin (Januvia) 100 Mg Tablet PO 07/23/25 07:59 100 mg
DAILY HERLINDA Administration
Sodium Chloride 0 flush 06/26/25 12:00
Sodium Chloride 0.9% (Flush) Syringe IV 07/24/25 11:59
PER PROTOCOL HERLINDA
Tiotropium [place] 2 puff 06/25/25 08:00 06/27/25 07:35
Tiotropium (Spiriva Respimat) 2.5 Mcg Inhaler INH 07/23/25 07:59 2 puff
R DAILY HERLINDA Administration
--- NOTE | 2025-06-27 16:50 | CM ---
Patient out of room when CM visited with physician. CM called Don [phone] with physician, update provided to patient friend. CM will call to confirm cost of eliquis. Currently therapy is not recommending SNF at this time. Patient friend now
stating that patient can not go home due to the home having 27 steps and the friends concerns about patient. Patient home is at the [facility] and he rents a room there. CM will send need to send referral to [facility] to assess patient needs closer
to discharge and provided phone number to friends. CM will continue to follow for discharge planning needs.
Plan; plan home with VN vs SNF: pending medical treatment
--- NOTE | 2025-06-27 17:08 | W.PN.UPDATE ---
Update Note
Progress Note Update
After the procedure around [address] Rinaldi checked the pt and he is shivering, temp 99, in future if its increasing the future plan is to add LAB ORDER of URINALYSIS, URINE CULTURE in future.
[2025-06-27 17:15] LABS: Glucose - Point of Care 180 mg/dl (70-99)
[2025-06-27] MEDS: NOVOLOG FLEXPEN-LOW RESISTANCE 1 UNITS SC (17:35)
[2025-06-27] MEDS: LIPITOR 80 MG PO (17:37)
[2025-06-27] MEDS: ELIQUIS 5 MG PO (20:19)
[2025-06-27] MEDS: NORVASC 10 MG PO (21:00)
[2025-06-27] MEDS: FEOSOL 325 MG PO (21:00)
[2025-06-27 21:13] LABS: Glucose - Point of Care 139 mg/dl (70-99)
[2025-06-28] VITALS (7 sets, daily range): BP systolic 96–121; BP diastolic 48–60; PULSE 62–76; O2SAT 94
[2025-06-28 06:54] LABS: Hematocrit 34.2 % (39.0-52.0); Hemoglobin 10.6 g/dL (13.0-18.0); Mean Corp Hgb Conc. 31.0 g/dL (33.0-37.0); Mean Corpuscular Volume 82.8 fL (80.0-94.0); Nucleated Red Blood Cells % 0 % (-); Platelet Count 197 10^3/uL (130-400); Red Cell Dist. Width 16.4 % (11.5-14.5)
[2025-06-28 07:05] LABS: Glucose - Point of Care 104 mg/dl (70-99)
[2025-06-28] MEDS: NOVOLOG FLEXPEN-LOW RESISTANCE SC ×3 (07:42→16:30)
[2025-06-28 07:55] LABS: ALT (SGPT) 11 U/L (0-50); AST (SGOT) 15 U/L (17-59); Albumin 3.5 g/dl (3.5-5.0); Alkaline Phosphatase 75 U/L (38-126); Blood Urea Nitrogen 32 mg/dl (9-20); Calcium 8.4 mg/dl (8.4-10.2); Carbon Dioxide 28 mmol/L (22-30); Chloride 103 mmol/L (98-107); Estimated Creatinine Clearance 38 ml/min; Glucose 96 mg/dl (70-99); Potassium 4.3 mmol/L (3.5-5.1); Sodium 137 mmol/L (135-145); Total Protein 6.8 g/dl (6.3-8.2); eGFR 45.78
[2025-06-28] MEDS: SYMBICORT 160/4.5 MCG INHALER 2 PUFF INH ×2 (07:56→20:05)
[2025-06-28] MEDS: SPIRIVA RESPIMAT 2.5 MCG 2 PUFF INH (07:56)
--- NOTE | 2025-06-28 08:26 | W.PN.HOSP.TC ---
Addendum entered and electronically signed by Kesha Rinaldi MD 06/28/25 19:25:
I saw and evaluated the patient independently. I reviewed and discussed the resident�s note and agree with findings and plan as documented by Dr. Arnold.
GENERAL: well developed, well nourished, male in no apparent distress
HEENT: NC/AT--left eye deviated towards midline (nose)
HEART: regular rate and rhythm, +S1, +S2
LUNGS :rhonchi left base
ABDOM: soft, nontender, nondistended, + bowel sounds
EXT: no cyanosis, clubbing, or edema
NEUROLOGIC: grossly intact
Dizziness secondary to acute CVA--CTA head and neck negative--MRI confirms acute CVA right parietal and left occipital lobes, apprec cards--JOSÉ MIGUEL cannot exclude a left atrial appendage clot--apprec neuro---lipid panel shows LDL not at goal (88)--start
high intensity statin lipitor 80-- ECHO with preserved EF at essentially WNL--stop asa/plavix and starting eliquis--Linq also placed
fever--pt did spike a temp after his shivering --checking for infection--CXR, UA with reflex to culture, blood cultures
iron deficiency anemia--ferritin 6.7, B12 low--start repletion 1000mg daily--folate WNL--cont thiamine--pt had outpt scopes done 03/2025?
Diabetes mellitus type 2--cont Dapagliflozin 10 mg, sitagliptin 100 mg--insulin aspart sliding scale
GERD--continue Protonix
Essential Hypertension--Continue metoprolol 25 mg with parameters
Asthma-- Continue ipratropium/albuterol inhaler, tiotropium bromide.
DVT proph
Code-- Full
Original Note:
Today's Communication/Plan
-
Rising WBCs, fever overnight, infectious workup pending
c/w Eliquis
CM to josé Eliquis prior to discharge
Assessment / Plan
Assessment / Plan
70-year-old male with past history of type 2 diabetes, hypertension, hyperlipidemia, asthma, GERD presented with dizziness and slurred speech which became yesterday morning when he was at his friend's house. The patient noted the onset of dizziness
and found it necessary to sit down on the couch. He confirmed episodes of slurred speech, blurry vision (he is mentioning it is because of his new glasses)occurring at the same time.
#Fever
#Leukocytosis
F spike of 100.4F overnight with complaints of rigors, recent procedure, up-trending leukocytes -- concern for developing infection
- UA w/ reflex sent
- CXR ordered
- Blood Cx sent
- trend CBC/temp curve
- no clear source as yet, will decide abx accordingly
#Left Atrial Thrombus likely secondary to occult arrhythmia
D/c DAPT in favor of Eliquis given JOSÉ MIGUEL evidence of atrial thrombus
c/w Eliquis 5mg BID -- CM to check pricing for pt prior to discharge
Implantable loop recorder placed
pt to follow up with cardiology as OP
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
Vitals his BP 103/45, pulse rate 62, temp 97.7, RR 18, oxygen saturation 93.
hemoglobin 10.4--10.6
Chemistry: Bun 20--23 high, creatinine 1.4, blood glucose 104--91
Hep C negative
POC 118--83 in normal range.
I/o=
Head and neck CT angiogram: There is moderate disc space narrowing at C4-C5. There is mild narrowing at C3/C4. There is minimal reversal of normal cervical spinal lordosis. This can be seen with muscle spasm. Prevertebral soft tissues appear
normal.Overall mild atherosclerotic vascular disease.
EKG: Normal sinus rhythm, right bundle branch block, inferior infarct, T wave inversion.(Which was noted on the previous EKG on 2019).
MRI scan: Tiny acute or subacute infarcts in the right parietal lobe and left occipital lobe.
Chronic senescent changes, chronic lacunar infarcts.
On 06/25 echo:
1. Ejection fraction is 52% by volumetric assessment.
2. Compared to a prior transthoracic echocardiogram study from September 2021 no significant changes are seen.
3. Trileaflet calcified aortic valve with adequate leaflet excursion. Mild aortic insufficiency.
4. Mild concentric left ventricular hypertrophy
He is currently on aspirin 81 mg, clopidogrel 75 mg day 3 for 21 days followed by baby aspirin 81 mg continue.
Currently on permissive hypertension.
Lipid profile results showed LDL 88, goal LDL has to be less than 70, atorvastatin dosage increased to 80 mg
# Hypereosinophilia
14.2--14.4--4.2. Possibly due to cholesterol emboli
no overt signs of infectious causes
c/t monitor
# Vitamin B12 deficiency:
Vitamin B12-247 low
s/p vitamin B12 1000mg IM
c/w oral vitamin B12
# Iron deficiency anemia:
Ferritin 6.7 low,
Iron tablet prescribed
# Diabetes mellitus:
Dapagliflozin 10 mg, sitagliptin 100 mg,
insulin aspart sliding scale
# GERD continue Protonix
# Hypertension: Continue metoprolol 25 mg
# Asthma: Continue ipratropium/albuterol inhaler, tiotropium bromide.
# Speech evaluation completed and recommended to continue liquid, soft foods.
#Consulted PT,OT, ST.
# While call his neighbor MR. DEVORAH olivera who the patient is currently living regards to his disposition.
DVT: SCD
Code: Full
Diet: Resume low-cholesterol, diabetic diet.
Disposition: home (22 steps to apartment)
Anticipated Discharge: > 48 hours
Subjective/Interval History
-
Date of Service: June 28, 2025
Pt had fever overnight 100.4F with signs of rigors yesterday evening. NIHSS 2 for slurred speech, though per pt it is slightly improved. no other neurological complaints. No other acute overnight events
Objective Data
-
Labs:
Laboratory Results
06/28/25
05:48
WBC 15.2 H
Hgb 10.6 L
Hct 34.2 L
Plt Count 197
Sodium 137
Potassium 4.3
Chloride 103
Carbon Dioxide 28
BUN 32 H
Creatinine 1.6 H
Glucose 96
Calcium 8.4
Total Bilirubin 0.8
AST 15 L
ALT 11
Alkaline Phosphatase 75
Vital Signs:
Vital Signs
Temp Pulse Resp BP Pulse Ox
97.5 F 88 14 119/58 97
06/28/25 07:00 06/28/25 08:00 06/28/25 08:00 06/28/25 07:00 06/28/25 08:00
I&O
06/27/25 06/28/25 06/29/25
06:59 06:59 06:59
Intake Total 795 / 795 780 / 780
Output Total 400 / 400 900 / 900
Balance 395 / 395 -120 / -120
Review of Systems
-
History Source: Patient
All other systems: Reviewed and negative
Constitutional: Denies Fever, Sleep Disturbance, Night Sweats or Chills
EENT: Reports No Symptoms Reported
Respiratory: Reports No Symptoms
Cardiac: Reports No Symptoms
Abdomen/GI: Reports No Symptoms
Genitourinary: Reports No Symptoms
Musculoskeletal: Reports No Symptoms
Skin: Reports No Symptoms
Neuro: Reports Other (Slurred speech); Denies Dizzy, Headache, Weakness, Numbness, Ataxia, Tremors, Lightheadedness or Seizures
Hematologic / Lymphatic: Reports No Symptoms
Physical Exam
-
General: Well Developed, Well Nourished, No Apparent Distress and Comfortable
HEENT: Normocephalic, Atraumatic, Moist Mucous Membranes, Anicteric, [place] Conjunctivae, No Ptosis, PERRLA, Nose Appears Normal and Ears Appear Normal
Respiratory: Wheezes (BL end expiratory wheezing; new) and Non Labored Respirations; Negative Rhonchi or Crackles
Cardiac: Regular Rhythm and S1/S2; Negative Murmur
GI: Soft, Nontender, Nondistended and Normal Bowel Sounds
Genito-urinary: No Costovertebral Tender
Musculoskeletal: No Clubbing, No Cyanosis and No Edema
Skin: Warm and Dry
Neuro: AO x 3, No Sensory Deficits, Slurred Speech and Other (Left CN6 palsy; chronic. RLE 5/5 muscle strength, LLE 4/5 strength, fine touch sensation intact and symmetrical BL Upper/Lower extremity); Negative Tremors or Facial Droop
Psych: Calm and Intact Judgement/Insight
[2025-06-28] MEDS: JANUVIA 100 MG PO (08:49)
[2025-06-28] MEDS: ELIQUIS 5 MG PO ×2 (08:49→20:23)
[2025-06-28] MEDS: VITAMIN B-12 1000 MCG PO (08:54)
[2025-06-28] MEDS: PROTONIX 40 MG PO ×2 (08:54→20:23)
[2025-06-28] MEDS: FARXIGA 10 MG PO (08:55)
[2025-06-28] MEDS: TOPROL XL PO (09:06)
[2025-06-28 11:10] LABS: Urine Character Clear (Clear)
[2025-06-28 11:27] LABS: Urine Red Blood Cell 0-2 /HPF (0-2); Urine White Cell 0-2 /HPF (0-5)
[2025-06-28 11:41] LABS: Glucose - Point of Care 120 mg/dl (70-99)
--- NOTE | 2025-06-28 15:06 | CM ---
CM consult completed for Eliquis pricing
CM called [employer] & spoke with Lawrence ( )
Eliquis 5mg BID #60 ----Per Lawrence Eliquis is covered, no copay
tt Dr. Rinaldi
[2025-06-28 16:22] LABS: Glucose - Point of Care 135 mg/dl (70-99)
[2025-06-28] MEDS: LIPITOR 80 MG PO (17:06)
[2025-06-28 21:14] LABS: Glucose - Point of Care 179 mg/dl (70-99)
[2025-06-28] MEDS: NORVASC 10 MG PO (21:30)
[2025-06-28] MEDS: FEOSOL 325 MG PO (21:30)
[2025-06-28] MEDS: TYLENOL 650 MG PO (21:30)
[2025-06-29 03:23] VITALS: BP 110/53
[2025-06-29 06:57] LABS: ALT (SGPT) 14 U/L (0-50); AST (SGOT) 21 U/L (17-59); Albumin 3.8 g/dl (3.5-5.0); Alkaline Phosphatase 91 U/L (38-126); Blood Urea Nitrogen 31 mg/dl (9-20); Calcium 8.8 mg/dl (8.4-10.2); Carbon Dioxide 30 mmol/L (22-30); Chloride 101 mmol/L (98-107); Estimated Creatinine Clearance 44 ml/min; Glucose 102 mg/dl (70-99); Potassium 4.2 mmol/L (3.5-5.1); Sodium 137 mmol/L (135-145); Total Protein 7.2 g/dl (6.3-8.2); eGFR 53.74
[2025-06-29 07:00] VITALS: BP 104/58
[2025-06-29 07:05] LABS: Glucose - Point of Care 107 mg/dl (70-99)
[2025-06-29 07:06] LABS: Hematocrit 34.8 % (39.0-52.0); Hemoglobin 10.5 g/dL (13.0-18.0); Mean Corp Hgb Conc. 30.2 g/dL (33.0-37.0); Mean Corpuscular Volume 82.1 fL (80.0-94.0); Platelet Count 209 10^3/uL (130-400); Red Cell Dist. Width 16.6 % (11.5-14.5)
[2025-06-29] MEDS: NOVOLOG FLEXPEN-LOW RESISTANCE SC ×2 (07:30→16:34)
[2025-06-29] MEDS: SPIRIVA RESPIMAT 2.5 MCG 2 PUFF INH (07:56)
[2025-06-29] MEDS: SYMBICORT 160/4.5 MCG INHALER 2 PUFF INH ×2 (07:56→19:43)
[2025-06-29 07:58] LABS: Nucleated Red Blood Cells % 0 % (-)
[2025-06-29] MEDS: FARXIGA 10 MG PO (08:29)
[2025-06-29] MEDS: JANUVIA 100 MG PO (08:29)
[2025-06-29] MEDS: VITAMIN B-12 1000 MCG PO (08:30)
[2025-06-29] MEDS: PROTONIX 40 MG PO ×2 (08:30→20:37)
[2025-06-29] MEDS: TOPROL XL PO (08:30)
[2025-06-29] MEDS: ELIQUIS 5 MG PO ×2 (08:31→20:37)
--- NOTE | 2025-06-29 08:33 | W.PN.HOSP.TC ---
Addendum entered and electronically signed by Kesha Rinaldi MD 06/29/25 14:47:
I saw and evaluated the patient independently. I reviewed and discussed the resident�s note and agree with findings and plan as documented by Dr. Arnold.
GENERAL: well developed, well nourished, male in no apparent distress
HEENT: NC/AT--left eye deviated towards midline (nose)
HEART: regular rate and rhythm, +S1, +S2
LUNGS :rhonchi left base
ABDOM: soft, tender LUQ no rebound or guarding, nondistended, + bowel sounds
EXT: no cyanosis, clubbing, or edema
NEUROLOGIC: grossly intact
Dizziness secondary to acute CVA--CTA head and neck negative--MRI confirms acute CVA right parietal and left occipital lobes, apprec cards--JOSÉ MIGUEL cannot exclude a left atrial appendage clot--apprec neuro---lipid panel shows LDL not at goal (88)--start
high intensity statin lipitor 80-- ECHO with preserved EF at essentially WNL--stop asa/plavix and starting eliquis--Linq also placed
fever--checking for infection--CXR neg, UA neg, blood cultures neg--no need for ABX
LUQ pain--5 years ongoing--describes 05/16--will check CT scan a/p
iron deficiency anemia--ferritin 6.7, B12 low--start repletion 1000mg daily--folate WNL--cont thiamine--pt had outpt scopes done 03/2025?
Diabetes mellitus type 2--cont Dapagliflozin 10 mg, sitagliptin 100 mg--insulin aspart sliding scale
GERD--continue Protonix
Essential Hypertension--Continue metoprolol 25 mg with parameters
Asthma-- Continue ipratropium/albuterol inhaler, tiotropium bromide.
DVT proph
Code-- Full
Original Note:
Today's Communication/Plan
-
hopeful d/c today, however pending CM input for HH
c/w Eliquis
infectious workup so far negative though cx still pending, but seeming less likely. If d/c today, will observe cx and initiate abx if necessary and call pt.
Assessment / Plan
Assessment / Plan
70-year-old male with past history of type 2 diabetes, hypertension, hyperlipidemia, asthma, GERD presented with dizziness and slurred speech which became yesterday morning when he was at his friend's house. The patient noted the onset of dizziness
and found it necessary to sit down on the couch. He confirmed episodes of slurred speech, blurry vision (he is mentioning it is because of his new glasses)occurring at the same time.
#Fever
#Leukocytosis
F spike of 100.4F overnight with complaints of rigors, recent procedure, up-trending leukocytes -- concern for developing infection
- UA w/ reflex sent
- CXR wnl
- Blood Cx pending
- trend CBC/temp curve
- no clear source as yet, fever may be reactive to post-procedure, clot burden, CVA
#Left Atrial Thrombus likely secondary to occult arrhythmia
D/c DAPT in favor of Eliquis given JOSÉ MIGUEL evidence of atrial thrombus
c/w Eliquis 5mg BID -- CM to check pricing for pt prior to discharge
Implantable loop recorder placed
pt to follow up with cardiology as OP
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
Vitals his BP 103/45, pulse rate 62, temp 97.7, RR 18, oxygen saturation 93.
hemoglobin 10.4--10.6
Chemistry: Bun 20--23 high, creatinine 1.4, blood glucose 104--91
Hep C negative
POC 118--83 in normal range.
I/o=
Head and neck CT angiogram: There is moderate disc space narrowing at C4-C5. There is mild narrowing at C3/C4. There is minimal reversal of normal cervical spinal lordosis. This can be seen with muscle spasm. Prevertebral soft tissues appear
normal.Overall mild atherosclerotic vascular disease.
EKG: Normal sinus rhythm, right bundle branch block, inferior infarct, T wave inversion.(Which was noted on the previous EKG on 2018).
MRI scan: Tiny acute or subacute infarcts in the right parietal lobe and left occipital lobe.
Chronic senescent changes, chronic lacunar infarcts.
On 06/25 echo:
1. Ejection fraction is 52% by volumetric assessment.
2. Compared to a prior transthoracic echocardiogram study from September 2021 no significant changes are seen.
3. Trileaflet calcified aortic valve with adequate leaflet excursion. Mild aortic insufficiency.
4. Mild concentric left ventricular hypertrophy
He is currently on aspirin 81 mg, clopidogrel 75 mg day 3 for 21 days followed by baby aspirin 81 mg continue.
Currently on permissive hypertension.
Lipid profile results showed LDL 88, goal LDL has to be less than 70, atorvastatin dosage increased to 80 mg
# Hypereosinophilia
14.2--14.4--4.2. Possibly due to cholesterol emboli
no overt signs of infectious causes
c/t monitor
# Vitamin B12 deficiency:
Vitamin B12-247 low
s/p vitamin B12 1000mg IM
c/w oral vitamin B12
# Iron deficiency anemia:
Ferritin 6.7 low,
Iron tablet prescribed
# Diabetes mellitus:
Dapagliflozin 10 mg, sitagliptin 100 mg,
insulin aspart sliding scale
# GERD continue Protonix
# Hypertension: Continue metoprolol 25 mg
# Asthma: Continue ipratropium/albuterol inhaler, tiotropium bromide.
#?Stable chronic LUQ pain
- intermittent, resolved on its own, known to pt >5 years, felt to be msk related vs. spleen? but no prior imaging studies in our system
- exam reassuring
- no lab abnormalities to suggest need for further imaging or tests
- can follow up as outpt with PCP
# Speech evaluation completed and recommended to continue liquid, soft foods.
#Consulted PT,OT, ST.
# While call his neighbor MR. DEVORAH olivera who the patient is currently living regards to his disposition.
DVT: SCD
Code: Full
Diet: Resume low-cholesterol, diabetic diet.
Disposition: home (22 steps to apartment)
Anticipated Discharge: Within 24 hours
Subjective/Interval History
-
Date of Service: June 29, 2025
no acute events overnight. no new fevers. Had an episode of LUQ pain, not associated with any other sx, no aggravating or relieving factors, says it is chronic, felt to be msk related, episode lasted less than a minute, associated with sitting up to
take his meds -- gone now.
Objective Data
-
Labs:
Laboratory Results
06/29/25
05:44
WBC 14.4 H
Hgb 10.5 L
Hct 34.8 L
Plt Count 209
Sodium 137
Potassium 4.2
Chloride 101
Carbon Dioxide 30
BUN 31 H
Creatinine 1.4 H
Glucose 102 H
Calcium 8.8
Total Bilirubin 0.5
AST 21
ALT 14
Alkaline Phosphatase 91
Vital Signs:
Vital Signs
Temp Pulse Resp BP Pulse Ox
97.8 F 71 14 104/58 95
06/29/25 07:00 06/29/25 07:59 06/29/25 07:59 06/29/25 07:00 06/29/25 07:59
I&O
06/28/25 06/29/25 06/30/25
06:59 06:59 06:59
Intake Total 780 / 780 480 / 480 240 / 240
Output Total 900 / 900 350 / 350 925 / 925
Balance -120 / -120 130 / 130 -685 / -685
Review of Systems
-
History Source: Patient
All other systems: Reviewed and negative
Constitutional: Reports No Symptoms
EENT: Reports No Symptoms Reported
Respiratory: Reports No Symptoms
Cardiac: Reports No Symptoms
Abdomen/GI: Reports No Symptoms
Genitourinary: Reports No Symptoms
Musculoskeletal: Reports No Symptoms
Skin: Reports No Symptoms
Neuro: Reports No Symptoms
Endocrine: Reports No Symptoms
Hematologic / Lymphatic: Reports No Symptoms
Physical Exam
-
General: Well Developed, Well Nourished, No Apparent Distress, Comfortable and Slurred Speech
HEENT: Normocephalic, Atraumatic, Moist Mucous Membranes, Anicteric, [place] Conjunctivae, PERRLA, Nose Appears Normal and Ears Appear Normal
Respiratory: Wheezes (end expiratory wheezing in the Lower lung bases) and Non Labored Respirations; Negative Rales or Rhonchi
Cardiac: Regular Rhythm and S1/S2; Negative Murmur or Rub
GI: Soft, Nontender, Nondistended and Normal Bowel Sounds
Rectal: Deferred by Provider
Genito-urinary: No Costovertebral Tender
Musculoskeletal: No Clubbing, No Cyanosis and No Edema
Skin: Warm and Dry
Neuro: AO x 3, Slurred Speech and Other (stable chronic L CN6 palsy); Negative No Motor Deficits, No Sensory Deficits or Facial Droop
Psych: Calm and Intact Judgement/Insight
[2025-06-29 11:00] VITALS: BP 108/58
[2025-06-29] MEDS: TYLENOL 650 MG PO (11:59)
[2025-06-29] MEDS: ROXICODONE 10 MG PO (12:06)
[2025-06-29] MEDS: NOVOLOG FLEXPEN-LOW RESISTANCE 1 UNITS SC (12:07)
[2025-06-29 12:08] LABS: Glucose - Point of Care 154 mg/dl (70-99)
--- NOTE | 2025-06-29 12:35 | CM ---
Patient seen at bedside
PT mario 06/28 - rec home health vs. outpatient
Patient states he will be staying with his friend Almas when he is dc
CT ordered today
He stated he will let CM know if his friend can drive him to outpatient
PLAN: Home with Home Health vs. Outpatient, CM to follow up
[2025-06-29] MEDS: OMNIPAQUE 50 ML PO (12:52)
[2025-06-29 15:00] VITALS: BP 113/54
[2025-06-29 16:12] LABS: Glucose - Point of Care 106 mg/dl (70-99)
[2025-06-29] MEDS: LIPITOR 80 MG PO (17:09)
[2025-06-29] MEDS: MIRALAX 17 GRAMS PO (18:32)
[2025-06-29 19:30] VITALS: BP 113/54
[2025-06-29 21:20] LABS: Glucose - Point of Care 116 mg/dl (70-99)
[2025-06-29] MEDS: NORVASC PO (21:41)
[2025-06-29] MEDS: FEOSOL 325 MG PO (21:42)
[2025-06-29 23:37] VITALS: BP 123/58
[2025-06-30 03:18] VITALS: BP 110/53
--- NOTE | 2025-06-30 07:05 | W.PN.HOSP.TC ---
Today's Communication/Plan
-
Discharged today with follow-up with outpatient staff design engineer, PCP in few
Assessment / Plan
Assessment / Plan
70-year-old male with past history of type 2 diabetes, hypertension, hyperlipidemia, asthma, GERD presented with dizziness and slurred speech when he was at his friend's house. The patient noted the onset of dizziness and found it necessary to sit
down on the couch. He confirmed episodes of slurred speech, blurry vision (he is mentioning it is because of his new glasses)occurring at the same time, while on the hospitalization diagnosed with left atrial thrombus likely secondary to occult
arrhythmia and started on Eliquis.
#Left Atrial Thrombus likely secondary to occult arrhythmia
D/c DAPT in favor of Eliquis given JOSÉ MIGUEL evidence of atrial thrombus
c/w Eliquis 5mg BID -- CM to check pricing for pt prior to discharge
Implantable loop recorder placed
pt to follow up with cardiology as OP
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
Vitals his BP 103/45, pulse rate 62, temp 97.7, RR 18, oxygen saturation 93.
hemoglobin 10.4--10.6
Chemistry: Bun 20--23 high, creatinine 1.4, blood glucose 104--91
Hep C negative
POC 118--83 in normal range.
I/o=
Head and neck CT angiogram: There is moderate disc space narrowing at C4-C5. There is mild narrowing at C3/C4. There is minimal reversal of normal cervical spinal lordosis. This can be seen with muscle spasm. Prevertebral soft tissues appear
normal.Overall mild atherosclerotic vascular disease.
EKG: Normal sinus rhythm, right bundle branch block, inferior infarct, T wave inversion.(Which was noted on the previous EKG on 2018).
MRI scan: Tiny acute or subacute infarcts in the right parietal lobe and left occipital lobe.
Chronic senescent changes, chronic lacunar infarcts.
On 06/25 echo:
1. Ejection fraction is 52% by volumetric assessment.
2. Compared to a prior transthoracic echocardiogram study from September 2021 no significant changes are seen.
3. Trileaflet calcified aortic valve with adequate leaflet excursion. Mild aortic insufficiency.
4. Mild concentric left ventricular hypertrophy
Stopped aspirin 81 mg, clopidogrel 75 mg day 3 for 21 days due to left atrial thrombus
Currently on permissive hypertension.
Lipid profile results showed LDL 88, goal LDL has to be less than 70, atorvastatin dosage increased to 80 mg
# Hypereosinophilia
14.2--14.4--4.2. Possibly due to history of asthma.
no overt signs of infectious causes
c/t monitor
# Vitamin B12 deficiency:
Vitamin B12-247 low
s/p vitamin B12 1000mg IM
c/w oral vitamin B12
# Iron deficiency anemia:
Ferritin 6.7 low,
Iron tablet prescribed
# Diabetes mellitus:
Dapagliflozin 10 mg, sitagliptin 100 mg,
insulin aspart sliding scale
# GERD continue Protonix
# Hypertension: Continue metoprolol 25 mg
# Asthma: Continue ipratropium/albuterol inhaler, tiotropium bromide.
#Stable chronic LUQ pain secondary to constipation.
- intermittent, resolved on its own, known to pt >5 years, felt to be msk related vs. spleen? but no prior imaging studies in our system
- exam reassuring
- no lab abnormalities to suggest need for further imaging or tests
- can follow up as outpt with PCP
# Speech evaluation completed and recommended to continue liquid, soft foods.
#Consulted PT,OT, ST.
# While call his neighbor MR. DEVORAH olivera who the patient is currently living regards to his disposition.
PLAN: Home with Home Health vs. Outpatient, CM to follow up
DVT: SCD
Code: Full
Diet: Resume low-cholesterol, diabetic diet.
Disposition:discharged to home
Anticipated Discharge: Today
Subjective/Interval History
-
Date of Service: June 30, 2025
Overnight the patient has no concern for dizziness, palpitation, chest pain, slurred speech, blurry vision, abdominal pain, fever, chills. He had bowel movement yesterday after having PEG, and the stools are brown, not associated with bleeding,
black tarry stools.
Vitals: PA 68, Tmax 98, RR 18, saturation 97 on room air.
Lab: WBC 14.4--12 downgrading, hemoglobin stable 10.5--10.4, eosinophils 14.4--14.6--17.1 high uptrending,
Chemistry labs are pending check creatinine, bun
CT abdomen and pelvis with oral contrast on 06/29:
No acute inflammatory process within the abdomen or pelvis, Bilateral nonobstructing intrarenal calculi. Renal cysts, Moderate colonic fecal burden. No evidence to suggest bowel obstruction, 1.7 cm low-attenuation space-occupying lesion liver which
does not appear to represent a simple cyst, Consider further evaluation/follow-up nonemergent MRI for additional characterization,Basilar bronchial wall thickening with mucous plugging and atelectasis, Small sliding hiatal hernia.
hypereosinophils.
Objective Data
-
Labs:
Laboratory Results
06/30/25
06:00
WBC Pending
Hgb Pending
Hct Pending
Plt Count Pending
Sodium Pending
Potassium Pending
Chloride Pending
Carbon Dioxide Pending
BUN Pending
Creatinine Pending
Glucose Pending
Calcium Pending
Total Bilirubin Pending
AST Pending
ALT Pending
Alkaline Phosphatase Pending
Vital Signs:
Vital Signs
Temp Pulse Resp BP Pulse Ox
97.3 F 57 18 110/53 94
06/30/25 03:18 06/30/25 03:18 06/30/25 03:18 06/30/25 03:18 06/30/25 03:18
I&O
1106/30/25 07/01/25
06:59 06:59 06:59
Intake Total 480 / 480 2089
Output Total 350 / 350 1300 / 1300
Balance 130 / 130 790 / 790
Review of Systems
-
History Source: Patient
All other systems: Reviewed and negative
Physical Exam
-
General: No Apparent Distress
Respiratory: Clear to Auscultation
Cardiac: Regular Rhythm and S1/S2
GI: Soft, Nontender, Nondistended and Normal Bowel Sounds
Rectal: Brown
Genito-urinary: No Costovertebral Tender
Musculoskeletal: No Clubbing
Neuro: AO x 3, No Motor Deficits, Nonfocal/Grossly Intact, Central Nerve's Intact, No Sensory Deficits, DTR's Intact & Symmetrica and Other (Dysarthria improved from the time of admission.)
Hematologic / Lymphatic: No Lymphadenopathy
Psych: Calm
[2025-06-30 07:35] VITALS: BP 127/58
[2025-06-30] MEDS: SPIRIVA RESPIMAT 2.5 MCG 2 PUFF INH (07:57)
[2025-06-30] MEDS: SYMBICORT 160/4.5 MCG INHALER 2 PUFF INH (07:58)
[2025-06-30 08:11] LABS: Glucose - Point of Care 98 mg/dl (70-99)
[2025-06-30 08:13] LABS: Hematocrit 33.5 % (39.0-52.0); Hemoglobin 10.4 g/dL (13.0-18.0); Mean Corp Hgb Conc. 31.0 g/dL (33.0-37.0); Mean Corpuscular Volume 81.3 fL (80.0-94.0); Nucleated Red Blood Cells % 0 % (-); Platelet Count 205 10^3/uL (130-400); Red Cell Dist. Width 16.5 % (11.5-14.5)
[2025-06-30 08:48] LABS: ALT (SGPT) 16 U/L (0-50); AST (SGOT) 22 U/L (17-59); Albumin 3.7 g/dl (3.5-5.0); Alkaline Phosphatase 85 U/L (38-126); Blood Urea Nitrogen 29 mg/dl (9-20); Calcium 9.1 mg/dl (8.4-10.2); Carbon Dioxide 31 mmol/L (22-30); Chloride 98 mmol/L (98-107); Estimated Creatinine Clearance 44 ml/min; Glucose 94 mg/dl (70-99); Potassium 4.8 mmol/L (3.5-5.1); Sodium 132 mmol/L (135-145); Total Protein 7.2 g/dl (6.3-8.2); eGFR 53.74
[2025-06-30] MEDS: NOVOLOG FLEXPEN-LOW RESISTANCE SC ×3 (09:34→17:02)
[2025-06-30] MEDS: VITAMIN B-12 1000 MCG PO (09:35)
[2025-06-30] MEDS: PROTONIX 40 MG PO (09:35)
[2025-06-30] MEDS: FARXIGA 10 MG PO (09:35)
[2025-06-30] MEDS: TOPROL XL 25 MG PO (09:35)
[2025-06-30] MEDS: MIRALAX 17 GRAMS PO (09:35)
[2025-06-30] MEDS: ELIQUIS 5 MG PO (09:35)
[2025-06-30] MEDS: JANUVIA 100 MG PO (09:35)
--- NOTE | 2025-06-30 10:18 | CM ---
Addendum entered by Thelma Herrera 06/30/25 13:27:
CM spoke w/ patient's friend/neighbor, Dutch, regarding patient's discharge today. Dutch confirmed that patient is not able to stay w/ him as he has kids, 3 dogs and he works. Dutch stated he isn't sure where this plan came from but he is unable to
have patient stay w/ him. Dutch admitted he had concerns w/ patient being able to navigate his stairs to his room he rents but never agreed to him staying w/ him at d/c.
PT evaluated patient today, patient independent level, noted patient is able to climb stairs w/ railing. Per Dutch, patient will have to do home PT as he isn't able to take off work to transport patient to OP.
Dutch confirmed he is able to transport patient home after work
[facility] referral placed in [facility]. [facility] liaison to make aware of referral
[facility]

Plan: Home w/ [facility]
Original Note:
Chart reviewed. Patient likely to discharge today
Met w/ patient bedside, confirmed that he will discharge to his friend's home. Patient confirmed his friend will be able to transport him
CM asked patient if his friend will be able to transport to OP PT, patient stated he has to ask as he hasn't spoken to his friend since his visit 2 days ago. CM asked patient to confirm this because if his friend is unable to transport to OP, a home
care referral will need to be made. Patient understood this.
IMM verbally reviewed, copy provided, copy on chart
Plan: Home. Patient to confirm w/ CM if he can do OP PT or if HC referral is needed
[2025-06-30 11:25] VITALS: BP 116/54
[2025-06-30 11:49] LABS: Glucose - Point of Care 139 mg/dl (70-99)
[2025-06-30 12:38] VITALS: BP 120/70; PULSE 60; O2SAT 97
[2025-06-30] MEDS: PREVNAR 20 IM (12:44)
[2025-06-30] MEDS: PREVNAR 20 0.5 ML IM (13:37)
--- NOTE | 2025-06-30 13:57 | VNURNOTE ---
Home Health Liaison spoke with patient to discuss [facility] nurse/therapy, visits, schedule and homebound status. Patient is agreeable and understands that visits at home will be 2-3 x per week to assess and teach medical management. Patient is aware
that [facility] will contact them for start of care within a week after discharge from .
[facility] referral updated in [facility].
[2025-06-30 15:40] VITALS: BP 106/56
[2025-06-30 16:48] LABS: Glucose - Point of Care 111 mg/dl (70-99)
--- NOTE | 2025-06-30 17:15 | W.DCSUMMARY ---
Documented by User: Bong Palacios MD, Resident 06/30/25 17:52
Discharge Summary
Discharge Data
Date of Admission: 06/25/25
Date of Discharge: 06/30/25
Total time spent discharging patient (in min): 45-minute
-
Pending Results: No
Hospital Course
Discharging Physician : Max Yang MD
Bong Johnson MD
Disposition : Home with home care
Primary care physician : Dr Carlos Montenegro MD
Principal Discharge diagnosis : Acute cerebrovascular accident of the left occipital and right parietal lobe.
Left atrial thrombus finding on JOSÉ MIGUEL likely secondary to occult arrhythmia.
Chronic Discharge diagnosis :
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
# Vitamin B12 deficiency patient received 1000 mg IM shot, and discharged with vitamin B12 1000 mg tablets.
# Iron deficiency anemia ferrous sulfate 325 mg continued
# Insulin required type II diabetes mellitus while on hospital course.
# GERD continued with Protonix
# Asthma continued with ipratropium/albuterol inhaler, tiotropium bromide
# Hyperlipidemia atorvastatin 40 mg increased to 80 mg to have LDL<70 goal.
# Essential hypertension continue with metoprolol 25 mg with parameters.
Hospital Course : On 06/1870 1-year-old male with past history of diabetes mellitus, hypertension, hyperlipidemia and asthma presented with slurred speech, dizziness, blurry vision happened at the same time and he sat on the couch. However at the
time of admission he denied numbness, tingling, weakness, chest pain, palpitation, similar episodes, confusion, trouble of coordination, headache, nausea, vomiting, vertigo. He was taking his medications regularly which includes metformin 500 mg,
sitagliptin 100 mg, empagliflozin 10 mg, metoprolol and amlodipine for his diabetes and hypertension. He was a non-smoker and recent did not go for surgeries. Initial stroke workup started with neurologist consult, NIH scale, BP with permissive
hypertension and held all the antihypertensives. His WBC, hemoglobin, chemistry were within normal range. Head and neck CT angiogram was taken shown moderate disc space narrowing at C4-C5, overall mild atherosclerotic vascular disease. Followed
by MRI of the head ordered for the suspicious of ischemia/mass. Meanwhile patient was started on iron supplement, B12 checked which was low and administered B12 injection. Neurologist recommended dual antiplatelet therapy which includes aspirin 81
mg and clopidogrel 75 mg for 21 days. Meanwhile MRI scan arrived which showed tiny acute or subacute infarct in the right parietal lobe and left occipital lobe, by given the findings echo ordered to find out the secondary source for multiple
infarcts. Engineer/Conductor are consulted and echo ordered however echo findings were normal ejection fraction, mild concentric left ventricular hypertrophy when compared with the previous 12/24/2021 echo. After discussing with varnishing unit operator, neurologist
dual antiplatelet therapy stopped and switched to Eliquis 5 mg twice daily dosage. JOSÉ MIGUEL impression was probable left atrial appendage thrombus and discussed with the patient's regards risks and benefits of proceeding with Eliquis oral
anticoagulation, with implantable loop recorder placed. He had fever at the time of hospitalization however his chest x-ray, urinalysis with reflex to culture, blood cultures were negative. For his essential hypertension continue with metoprolol 25
mg with parameters. While on hospitalization course he was stable and discharged. Recommended him to follow-up with varnishing unit operator in 1 to 2 weeks of discharge, PCP within few weeks of discharge.
IMPORTANT:
If your symptoms worsen when you get home, go to the Emergency Room if you cannot reach a doctor, or call 911
Important imaging findings :
# On 06/24 head/neck CTA:
No acute intracranial pathology.
Moderate nonacute sinusitis. Probable large right nasal cavity polyps.
No acute vascular pathology. No M1 nor M2 occlusion.
Overall mild atherosclerotic vascular disease.
Multilevel degenerative disc disease.
Minimal reversal of normal cervical spinal lordosis. This can be seen with muscular spasm.
# On 06/25 brain MRI:
Tiny acute or subacute infarcts in the right parietal lobe and left occipital lobe, Chronic senescent changes, Chronic lacunar infarcts.
# On 06/28 chest x-ray finding : no acute cardiopulmonary abnormality.
# On 06/29 abdominal/pelvis CT:
No acute inflammatory process within the abdomen or pelvis.
Bilateral nonobstructing intrarenal calculi. Renal cysts.
Moderate colonic fecal burden. No evidence to suggest bowel obstruction.
1.7 cm low-attenuation space-occupying lesion liver which does not appear to represent a simple cyst. Consider further evaluation/follow-up nonemergent MRI for additional characterization.
Basilar bronchial wall thickening with mucous plugging and atelectasis.
Small sliding hiatal hernia.
Procedure findings :
On 06/27/2025 JOS[facility] MIGUEL findings:
1. Ejection fraction is 55-60% by visual assessment.
2. There was a relatively small echodense structure in the midportion of the left atrial appendage. This may be secondary to artifact; however, atypical thrombus cannot completely be excluded.
3. Highly aneurysmal interatrial septum with no evidence for PFO. Negative bubble study.
4. Subsequent DCCVN was NOT performed.
Discharge Plan
-
Patient Disposition: Home with Home Care
Discharge Diagnosis/Procedures: JOSÉ MIGUEL + Linq device implant (06/27)
Condition: Fair
Diet: Low Fat and Low Cholesterol
Activity: No restrictions
Bathing Restrictions: None
Other Services: PT and OT
Instructions: Stroke (DC), Diabetes and diet, BLOOD PRESSURE
Stand Alone Forms: DC Inst - Implanted Device
Referrals:
[facility] [place] [Provider Group] - 07/07/25 10:20 am
Referral Note: Post device incision check appointment
Carlos Montenegro MD [Family Provider, Family Practice]
Rach Fall PA-C [Specified Professional Personl, Cardiology] - 07/25/25 2:20 pm
Referral Note: You have a follow up visit with Dr. Alvarez's PA, Rach Fall, at the [place] office. Please call with questions.
Additional Discharge Medication Instructions: -Liver Function Test follow up with PCP within 4 weeks of discharge because of atorvastatin 80 mg
-Continue Eliquis 5 mg BID for 30 days and follow up with varnishing unit operator as an OPD.
-Currently on eliquis check for bleeding risks includes hematuria, hematochezia.
Prescriptions:
New
ferrous sulfate [FeroSul] 325 mg (65 mg iron) Tablet
325 mg PO HS 90 Days Qty: 90 0RF
atorvastatin 80 mg Tablet
80 mg PO QPM 90 Days Qty: 90 1RF
polyethylene glycol 3350 17 gram Powder In Packet
17 g PO DAILY 30 Days Qty: 30 0RF
cyanocobalamin (vitamin B-12) 500 mcg Tablet
1,000 mcg PO DAILY 60 Days Qty: 120 0RF
Eliquis 5 mg tablet
5 mg PO BID Qty: 30 0RF
Continued
Januvia 100 MG tablet
100 mg PO DAILY
metoprolol succinate 25 MG tablet extended release 24 hr
25 mg PO DAILY Qty: 90 10RF
metformin 500 MG tablet
1,000 mg PO BID Qty: 0 0RF
amlodipine 10 mg tablet
10 mg PO HS
omeprazole 20 mg capsule,delayed release(DR/EC)
20 mg PO BID
fluticasone furoate-vilanterol [Breo Ellipta] 100-25 mcg/dose blister with device
1 inh INHALATION DAILY
Jardiance 10 mg tablet
10 mg PO DAILY
Spiriva Respimat 1.25 mcg/actuation mist
2 puff INHALATION DAILY
ipratropium-albuterol 0.5 mg-3 mg(2.5 mg base)/3 mL solution for nebulization
3 ml INHALATION Q6HPRN PRN (Reason: shortness of breath)
Discharge Orders:
Discharge Patient (As Directed); Ordered 06/30/25
Ordered By: Bong Palacios
Discharge Date and Time
Discharge Date/Time: 06/30/25 18:45
Print Language: CAMBODIAN

Documented by User: Max Barber DO 07/01/25 08:41
Discharge Summary
Discharge Data
Date of Admission: 06/25/25
Date of Discharge: 06/30/25
Total time spent discharging patient (in min): 45
Discharge Plan
-
Patient Disposition: Home with Home Care
Discharge Diagnosis/Procedures: JOSÉ MIGUEL + Linq device implant (06/27)
Condition: Fair
Diet: Low Fat and Low Cholesterol
Activity: No restrictions
Bathing Restrictions: None
Other Services: PT and OT
Instructions: Stroke (DC), Diabetes and diet, BLOOD PRESSURE
Stand Alone Forms: DC Inst - Implanted Device
[facility] [place] [facility] - 07/07/25 10:20 am
Referral Note: Post device incision check appointment
Carlos Montenegro MD [Family Provider, Family Practice]
Rach Fall PA-C [Specified Professional Personl, Cardiology] - 07/25/25 2:20 pm
Referral Note: You have a follow up visit with Dr. Alvarez's PARach, at the [place] office. Please call with questions.
Additional Discharge Medication Instructions: -Liver Function Test follow up with PCP within 4 weeks of discharge because of atorvastatin 80 mg
-Continue Eliquis 5 mg BID for 30 days and follow up with varnishing unit operator as an OPD.
-Currently on eliquis check for bleeding risks includes hematuria, hematochezia.
Prescriptions:
New
ferrous sulfate [FeroSul] 325 mg (65 mg iron) Tablet
325 mg PO HS 90 Days Qty: 90 0RF
atorvastatin 80 mg Tablet
80 mg PO QPM 90 Days Qty: 90 1RF
polyethylene glycol 3350 17 gram Powder In Packet
17 g PO DAILY 30 Days Qty: 30 0RF
cyanocobalamin (vitamin B-12) 500 mcg Tablet
1,000 mcg PO DAILY 60 Days Qty: 120 0RF
Eliquis 5 mg tablet
5 mg PO BID Qty: 30 0RF
Continued
Januvia 100 MG tablet
100 mg PO DAILY
metoprolol succinate 25 MG tablet extended release 24 hr
25 mg PO DAILY Qty: 90 10RF
metformin 500 MG tablet
1,000 mg PO BID Qty: 0 0RF
amlodipine 10 mg tablet
10 mg PO HS
omeprazole 20 mg capsule,delayed release(DR/EC)
20 mg PO BID
fluticasone furoate-vilanterol [Breo Ellipta] 100-25 mcg/dose blister with device
1 inh INHALATION DAILY
Jardiance 10 mg tablet
10 mg PO DAILY
Spiriva Respimat 1.25 mcg/actuation mist
2 puff INHALATION DAILY
ipratropium-albuterol 0.5 mg-3 mg(2.5 mg base)/3 mL solution for nebulization
3 ml INHALATION Q6HPRN PRN (Reason: shortness of breath)
Discharge Orders:
Discharge Patient (As Directed); Ordered 06/30/25
Ordered By: Bong Palacios
Discharge Date and Time
Discharge Date/Time: 06/30/25 18:45
Print Language: CAMBODIAN
[2025-06-30] MEDS: LIPITOR 80 MG PO (17:46)
== END 2025-06-30 18:45 | disposition home health service (06) | DRG 41 ==
LOC: 4 EAST ACU 13:20
PROVIDERS: Emergency Medicine; Internal Medicine; Internal Medicine Cardiovascular Disease; Physician Assistant Medical; ADMITTING PHYSICIAN Hospitalist; ATTENDING PHYSICIAN Internal Medicine; CONSULT PHYSICIAN Internal Medicine Cardiovascular Disease; CONSULT PHYSICIAN Psychiatry & Neurology Neurology; EMERGENCY PHYSICIAN Emergency Medicine; FAMILY PHYSICIAN Family Medicine
PROC: 0JH632Z Insertion of Monitoring Device into Chest Subcutaneous Tissue and Fascia, Percutaneous Approach (ICD-10-PCS; 2025-06-27)
PROC: B24BZZ4 Ultrasonography of Heart with Aorta, Transesophageal (ICD-10-PCS; 2025-06-27)
PROC: 3E0234Z Introduction of Serum, Toxoid and Vaccine into Muscle, Percutaneous Approach (ICD-10-PCS; 2025-06-30)
DX: I63.9 Cerebral infarction, unspecified (principal); I25.3 Aneurysm of heart; J98.11 Atelectasis; R47.81 Slurred speech; E11.40 Type 2 diabetes mellitus with diabetic neuropathy, unspecified; I10 Essential (primary) hypertension; E78.5 Hyperlipidemia, unspecified; R47.1 Dysarthria and anarthria; H50.89 Other specified strabismus; I51.3 Intracardiac thrombosis, not elsewhere classified; J44.89 Other specified chronic obstructive pulmonary disease; D64.9 Anemia, unspecified; R26.81 Unsteadiness on feet; K21.9 Gastro-esophageal reflux disease without esophagitis; I35.8 Other nonrheumatic aortic valve disorders; E53.8 Deficiency of other specified B group vitamins; M48.02 Spinal stenosis, cervical region; D72.10 Eosinophilia, unspecified; N28.1 Cyst of kidney, acquired; N20.0 Calculus of kidney; K44.9 Diaphragmatic hernia without obstruction or gangrene; J33.9 Nasal polyp, unspecified; D50.9 Iron deficiency anemia, unspecified; Z60.2 Problems related to living alone; Z23 Encounter for immunization; Z79.84 Long term (current) use of oral hypoglycemic drugs; Z79.51 Long term (current) use of inhaled steroids; Z98.42 Cataract extraction status, left eye; Z98.41 Cataract extraction status, right eye; Z79.899 Other long term (current) drug therapy
CPT/HCPCS: 33285; 70496; 70498; 70551; 71045; 74176; 80048; 80053; 80061; 81003; 81015; 82607; 82728; 82746; 82962; 83036; 83735; 84443; 85025; 85027; 86803; 87040; 90677; 92507; 92523; 92526; 92610; 93005; 93306; 93312; 93320; 93325; 94640; 97116; 97129; 97162; 97166; 97530; 97535; 99285; C1764; G0009; J2916; Q9967